=== PATIENT | female | born 1960 | race Caucasian/White ===

== ENCOUNTER 2017-05-04 11:01 | Outpatient (CLI) | payer BC, MEDICARE ==
[2017-05-04 13:44] LABS: Bilirubin Large (Negative); Blood, Urine Negative (Negative); Clarity CLEAR (Clear); Glucose, Urine (Dipstick) Negative (Negative); Leukocyte Negative (Negative); Nitrite Negative (Negative); Protein, Urine (Dipstick) Negative (Neg-Trace); Specific Gravity, Urine 1.016 (1.002-1.036); Urobilinogen 0.2 mg/dL (0.2-1.0); pH, Urine 5.5 (5.0-9.0)
[2017-05-04 13:50] LABS: Bacteria/HPF Rare-Few HPF (None Seen); Hyaline Casts/LPF 4-6 HYALINE CAST LPF (0-3 Hyaline); Pathc Cast-AUWi Flag 0.54 (0-2.49); RBC/HPF 0-3 HPF (0-3); WBC/HPF 0-3 HPF (0-3)
== END 2017-05-04 11:02 | disposition home or self-care (01) ==
LOC: LABBT 11:01
PROVIDERS: ATTEND Orthopaedic Surgery
DX: Z01.812 Encounter for preprocedural laboratory examination (principal); M17.11 Unilateral primary osteoarthritis, right knee
CPT/HCPCS: 81001; 86850; 86900; 86901; 87081; 87086

== ENCOUNTER 2017-05-04 11:15 | Inpatient (IN) | payer BC, MEDICARE ==
[2017-05-12] MEDS ORDERED: CEFAZOLIN/Water 2 GM/20 ML SYRINGE ONE (11:53)
[2017-05-12] MEDS ORDERED: Vancomycin HCl 1.5 GM in Sodium Chloride 0.9% 250 ML 300 ML IVPB SCH (12:15)
[2017-05-12] MEDS ORDERED: Fentanyl 100 MCG/2 ML VIAL ONE ×4 (12:24→17:06)
[2017-05-12] MEDS ORDERED: Midazolam HCl 2 mg/2 ml Vial ONE (12:24)
[2017-05-12 12:37] LABS: INR-International Normal Ratio 1.1; PTT 28.7 SEC (22.9-36.1); Prothrombin Time 14.1 SEC (12.0-14.7)
[2017-05-12] MEDS ORDERED: HYDROcodone/Acetaminophen 10/325 mg Tablet PO PRN ×2 (12:57)
[2017-05-12] MEDS ORDERED: traMADol HCl 50 MG TAB PO PRN ×3 (12:57→18:31)
[2017-05-12] MEDS ORDERED: Promethazine HCl 25 MG/ML VIAL IM PRN ×2 (12:57→17:09)
[2017-05-12] MEDS ORDERED: Ondansetron HCl/PF 4 MG/2 ML Vial IVP PRN ×2 (12:57→17:09)
[2017-05-12] MEDS ORDERED: Fentanyl 100 MCG/2 ML VIAL IV PRN (12:57)
[2017-05-12] MEDS ORDERED: Zolpidem Tartrate 5 MG TAB PO PRN ×3 (12:57→18:31)
[2017-05-12] MEDS ORDERED: Ketorolac Tromethamine 30 MG/ML VIAL IVP PRN (12:57)
[2017-05-12] MEDS ORDERED: SODIUM CHLORIDE IM SCH (13:15)
[2017-05-12] MEDS ORDERED: ADMIXTURE FEE IM SCH (13:15)
[2017-05-12] MEDS ORDERED: BUPIVACAINE IM SCH (13:15)
[2017-05-12] MEDS ORDERED: Bupivacaine PF 0.5% 30 ML VIAL ONE (15:41)
[2017-05-12] MEDS ORDERED: HYDROmorphone 0.5 MG/0.5 ML SYRINGE ONE ×2 (15:59→16:13)
[2017-05-12] MEDS ORDERED: Dexamethasone 20 MG/5 ML VIAL ONE (16:02)
[2017-05-12] MEDS ORDERED: Ondansetron HCl/PF 4 MG/2 ML Vial ONE (16:02)
[2017-05-12] MEDS ORDERED: Propofol 200 MG/20 ML VIAL ONE (16:02)
[2017-05-12] MEDS ORDERED: Lidocaine 1% PF 5 ML VIAL ONE (16:02)
[2017-05-12] MEDS ORDERED: Ketorolac Tromethamine 30 MG/ML VIAL ONE (16:02)
[2017-05-12] MEDS ORDERED: Naloxone HCl 0.4 mg/ml Vial IV PRN (17:09)
[2017-05-12] MEDS ORDERED: Morphine CADD 1 MG/ML CADD IV PRN (17:09)
[2017-05-12] MEDS ORDERED: diphenhydrAMINE 25 MG CAP PO PRN (17:09)
[2017-05-12] MEDS ORDERED: diphenhydrAMINE 50 MG/ML VIAL IM/IV PRN (17:09)
[2017-05-12] MEDS ORDERED: Morphine Sulfate 2 MG/ML SYRINGE SLOW IVP PRN (17:17)
--- NOTE | 2017-05-12 18:20 | RAD ---
RIGHT KNEE: 05/12/17 Two views. HISTORY: Postop knee replacement followup. IMPRESSION: Postop changes are noted. Knee replacement is noted. Prosthetic components appear in adequate positio n and alignment. POS: [facility]
[2017-05-12] MEDS ORDERED: Acetaminophen 325 MG TAB PO PRN (18:31)
[2017-05-12] MEDS ORDERED: Cepastat Lozenges 1 LOZ PO PRN (18:31)
[2017-05-12] MEDS ORDERED: Milk Of Magnesia 30 ML UDCUP PO PRN (18:31)
[2017-05-12] MEDS ORDERED: Morphine 5 MG/ML SYRINGE SLOW IVP PRN (18:31)
[2017-05-12] MEDS ORDERED: SUMAtriptan Succinate 50 MG TAB PO PRN (18:31)
[2017-05-12] MEDS ORDERED: metFORMIN 500 MG TAB PO SCH (18:45)
[2017-05-12] MEDS: CEFAZOLIN/Water 2 GM/20 ML SYRINGE SLOW IVP SCH (19:55)
[2017-05-12] MEDS: traZODone HCl 50 MG TAB PO SCH (21:19)
[2017-05-12] MEDS: Pioglitazone HCl 15 MG TAB PO SCH (21:19)
[2017-05-12] MEDS: Citalopram 20 MG TAB PO SCH (21:20)
[2017-05-12] MEDS: Aspirin 81 mg Enteric Coated Tablet PO SCH (21:20)
[2017-05-12] MEDS: Senokot S 8.6-50 MG TAB PO SCH (21:21)
--- NOTE | 2017-05-12 23:54 | OP ---
DATE OF PROCEDURE: 05/12/2017 PREOPERATIVE DIAGNOSIS: Posttraumatic arthritis, right knee, status post right tibial plateau fractu re. POSTOPERATIVE DIAGNOSES: Posttraumatic arthritis, right knee, status post right tibial plateau fract ure with addition of right knee medial collateral ligament deficiency. PROCEDURES: 1. Right knee hardware removal from proximal tibia. 2. Right total knee arthroplasty. ANESTHESIA: General. SURGEON: Manuel Crane M.D. ASSISTANTS: Steffanie Ngo PA-C and Zan Acuna PA-C. TOURNIQUET TIME: Two hours at 300 mmHg. IMPLANTS: [employer] system was used with a 2.5 posterior stabilized femoral component, a 2.5 tibia l tray with 13 x 30 mm stem, a 15 mm stabilized plus poly insert, and a 35 mm all-poly patellar butto n. COMPLICATIONS: None. DRAINS: None. SPECIMEN: None. OUTCOME: Satisfactory. INDICATIONS: Ms. Beckham is a 57-year-old lady who is status post bicondylar tibial plateau fracture t reated with open reduction and internal fixation. Unfortunately, the severely comminuted fracture we nt on to healing but with post-traumatic arthritis that is still causing the patient pain on a daily basis. After discussion with patient including risks and benefits, we have decided to proceed with r evision to total knee arthroplasty. Informed consent has been obtained and I believe all questions h ave been answered. PROCEDURE IN DETAIL: Patient was brought to the operating room and a timeout performed followed by i nduction of general anesthesia. Next, patient was positioned supine on the OR table and then a steri le prep and drape was performed of the right lower extremity. Next, a small poke hole was made at th e proximal medial aspect of the tibia under C-arm guidance. Blunt dissection was carried down to the medial plate and then 3 screws were removed from this plate through this small stab wound. At the c ompletion of this, it was then decided to proceed with a midline anterior knee incision where it was felt that the remaining hardware could be removed from this one incision. As such, the limb was exsa nguinated with Esmarch bandage, tourniquet inflated to 300 mmHg. An anterior midline incision was ma de followed by dissection exposing the quadriceps mechanism. The medial parapatellar arthrotomy was then performed. A medial release was performed, taking the sleeve of soft tissue off of the anterome dial tibia and extending back towards the posterior aspect of the tibia. During the process of this exposure, the medial plate could be easily visualized and through a second small stab wound medially, the two final screws were removed from the plate and then the plate removed from the wound. Next, u sing the same skin incision, the fascia over the anterior compartment was incised and then the latera l plate exposed and all screws and plate were removed from the lateral side. Next, attention was anabelle elissa back at the knee arthroplasty procedure. The suprapatellar fat pad was excised and then the cox lla inverted and the knee flexed. A step drill was used to obtain a starting point of the distal fem ur and then intramedullary alignment was used to pin a jig for the initial distal femoral cut. Next, the distal femur was sized to a size 2.5. This was followed by the four-in-one cutting block perfor meeta the final cuts of the distal femur and then a box cut to accept the posterior stabilized compone nt. Next, attention was placed to the proximal tibia. The remnant of meniscus was excised and the A CL had been excised previously. She was found to have a completely deficient PCL. As such again usi ng intramedullary alignment, a drill hole was placed in the proximal tibia and then intramedullary al ignment performed with the proximal tibial jig pinned to the front of the tibia. A cut was then perf ormed taking a rather thin layer of bone from anterior but this became thicker as we went farther ariela k on the tibia due to the deformity of the tibia. This cut was then removed and sized to a size 2.5. The trial 2-1/2 tray was then placed on the proximal tibia and pinned in place into the proximal ti deshawn further prepared with the reamer and cruciform punch. A trial reduction was then performed and a size 15 insert resulted in relatively good stability with still some laxity at the medial side of th e knee consistent with chronically disrupted medial collateral ligament. The patella was then resurf aced freehand and sized to a 35 with peg holes drilled into the bone. Next, all trial components wer e removed from the knee and the knee irrigated with normal saline using Pulsavac. Cement was mixed a nd the tibial tray cemented in place first followed by excision of excess cement. This was followed by cementing in place of the femoral component. A trial liner was introduced into the knee and the k nee was brought into compression on while the knee was in full extension getting compression across t he components. The patella was then cemented in place and held in place with a clamp. Once cement h ad fully cured, the trial poly was removed. Some excess cement further removed and then the final po ly insert introduced. The quadriceps mechanism was reapproximated with #2 Vicryl followed by 2-0 Mikel ryl and eda for the skin. A small stab wounds medially were also closed with eda. A Xerofor m gauze, Webril, and Lam wrap dressing were applied to the knee and the knee was placed in a knee imm obilizer. It should be noted the tourniquet was let down at a total time of 2 hours and this was rig ht at the completion of wound closure. There were no complications and patient tolerated the procedu re well.
[2017-05-13] MEDS: CEFAZOLIN/Water 2 GM/20 ML SYRINGE SLOW IVP SCH (03:35)
[2017-05-13 05:32] LABS: Hemoglobin 10.7 g/dL (12.0-16.0); Mean Corpuscular HGB CONC 32.6 g/dL (32.0-36.0); Mean Corpuscular Hemoglobin 30.1 pg (27.0-31.0); Mean Corpuscular Volume 92.3 fl (81.0-99.0); Mean Platelet Volume 7.7 fL (7.4-10.4); Platelet Count 307 thou/uL (130-400); RBC Distribution Width 12.4 % (11.5-14.5); Red Blood Cell (RBC) Count 3.57 mill/uL (4.20-5.40); White Blood Cell (WBC) Count 13.2 thou/uL (4.8-10.8)
[2017-05-13] MEDS: metFORMIN 500 MG TAB PO SCH ×2 (08:20→16:17)
[2017-05-13] MEDS: Allopurinol 300 MG TAB PO SCH (08:21)
[2017-05-13] MEDS: Aspirin 81 mg Enteric Coated Tablet PO SCH ×2 (08:21→20:04)
[2017-05-13] MEDS: Vit A,C & E/Lutein/Minerals Tablet PO SCH (08:22)
[2017-05-13] MEDS: Estradiol 1 MG TAB PO SCH (08:22)
[2017-05-13] MEDS: Lisinopril 20 MG TAB PO SCH (08:22)
[2017-05-13] MEDS: Folic Acid 1 MG TAB PO SCH (08:22)
[2017-05-13] MEDS: Senokot S 8.6-50 MG TAB PO SCH ×2 (08:23→20:04)
[2017-05-13] MEDS ORDERED: (Liraglutide [Victoza 2-Pak] 1.8 MG) SC SCH (09:00)
[2017-05-13] MEDS ORDERED: Leflunomide 10 mg Tablet PO SCH (09:00)
[2017-05-13] MEDS ORDERED: Methotrexate Sodium 2.5 MG TAB PO SCH (09:00)
[2017-05-13] MEDS ORDERED: FLU VACC QS2017-18 36 mo. & older 0.5 ML SYRINGE IM ONE (09:00)
[2017-05-13] MEDS ORDERED: Dextrose 5% in Water 1,000 ML IV PRN (09:33)
[2017-05-13] MEDS ORDERED: Dextrose 50% Abboject 50 ML SYRINGE SLOW IVP PRN (09:33)
[2017-05-13] MEDS ORDERED: HumaLOG 300 UNITS/3 ML VIAL SC PRN ×2 (09:33)
[2017-05-13] MEDS: Fenofibrate Nanocrystallized 145 MG TAB PO SCH (09:34)
--- NOTE | 2017-05-13 15:07 | PDOC.PN ---
- Subjective Encounter Start Date: 05/13/17 Encounter Start Time: 15:05 Subjective: s/p R total knee arthroplasty for post tarumatic arthritis -: no new complains except pain in affected knee -: no F/C.no cough/SOB PCP Dr. Derek Cardona - Objective MAR Reviewed: Yes Vital Signs & Weight: Vital Signs (12 hours) Temp Pulse Resp BP BP Pulse Ox 05/13/17 12:05 97.6 F 96 18 139/75 90 L 05/13/17 08:22 104/68 05/13/17 08:00 98.8 F 90 14 104/68 96 05/13/17 07:40 98.8 F 90 14 05/13/17 03:35 97.8 F 91 18 124/78 92 L Weight Weight 16 lb 4 oz I&O: 05/12/17 05/13/17 05/14/17 06:59 06:59 06:59 Intake Total 250 400 Output Total 375 600 Balance -125 -200 Result Diagrams: 05/13/17 04:32 Additional Labs: Accuchecks 05/13/17 05/13/17 05/12/17 10:42 06:44 23:09 POC Glucose 145 H 129 H 234 H 05/12/17 18:00 POC Glucose 173 H Radiology Reviewed by me: Yes Phys Exam - Physical Examination Constitutional: NAD sitting up in recliner.family at bedside HEENT: PERRLA, moist MMs, sclera anicteric, oral pharynx no lesions Neck: no nodes, no JVD, supple, full ROM Respiratory: no wheezing, no rales, no rhonchi, clear to auscultation bilateral Cardiovascular: RRR, no significant murmur Gastrointestinal: soft, non-tender, no distention, positive bowel sounds Musculoskeletal: no edema, pulses present R knee wrapped Neurological: non-focal, normal sensation, moves all 4 limbs Psychiatric: normal affect, A&O x 3 Skin: no rash Dx/Plan (1) S/P total knee arthroplasty Code(s): Z96.659 - PRESENCE OF UNSPECIFIED ARTIFICIAL KNEE JOINT Status: Acute Qualifiers: Laterality: right Qualified Code(s): Z96.651 - Presence of right artificial knee joint (2) FH: breast cancer in first degree relative Code(s): Z80.3 - FAMILY HISTORY OF MALIGNANT NEOPLASM OF BREAST Status: Chronic Comment: pt advised again to stop premarin (3) DM2 (diabetes mellitus, type 2) Status: Chronic Qualifiers: Diabetes mellitus complication status: with hyperglycemia (4) Depression Code(s): F32.9 - MAJOR DEPRESSIVE DISORDER, SINGLE EPISODE, UNSPECIFIED Status : Chronic (5) Gout Code(s): M10.9 - GOUT, UNSPECIFIED Status: Chronic (6) HTN (hypertension) Code(s): I10 - ESSENTIAL (PRIMARY) HYPERTENSION Status: Chronic Qualifiers: Hypertension type: essential hypertension Qualified Code(s): I10 - Essential (primary) hypertension (7) Migraine Code(s): G43.909 - MIGRAINE, UNSP, NOT INTRACTABLE, WITHOUT STATUS MIGRAINOSUS Status: Chronic (8) PARMINDER (obstructive sleep apnea) Code(s): G47.33 - OBSTRUCTIVE SLEEP APNEA (ADULT) (PEDIATRIC) Status: Chronic (9) Psoriatic arthritis Code(s): L40.50 - ARTHROPATHIC PSORIASIS, UNSPECIFIED Status: Chronic - Plan plan discussed w/ family, PT/OT, hospital social worker, respiratory therapy, incentive spirometry, out of bed/ambulate, DVT proph w/SCDs Home meds as started by Primary team.HD stable.monitor BP -: ASA BID for DVT prophylaxis.add GI prophyalxis -: Add ISS w accuchecks.pt will have her Trulicity brought from home * . Review of Systems - Review of Systems Constitutional: negative: fever, chills, sweats, weakness, malaise, other ENT: negative: Ear Pain, Ear Discharge, Nose Pain, Nose Discharge, Nose Congestion, Mouth Pain, Mouth Swelling, Throat Pain, Throat Swelling, Other Respiratory: negative: Cough, Dry, Shortness of Breath, Hemoptysis, SOB with Excertion, Pleuritic Pain, Sputum, Wheezing Cardiovascular: negative: chest pain, palpitations, orthopnea, paroxysmal nocturnal dyspnea, edema, light headedness, other Gastrointestinal: negative: Nausea, Vomiting, Abdominal Pain, Diarrhea, Constipation, Melena, Hematochezia, Other Genitourinary: negative: Dysuria, Frequency, Incontinence, Hematuria, Retention , Other Musculoskeletal: negative: Neck Pain, Shoulder Pain, Arm Pain, Back Pain, Hand Pain, Leg Pain, Foot Pain, Other Skin: negative: Rash, Lesions, Rex, Bruising, Other Neurological: negative: Weakness, Numbness, Incoordination, Change in Speech, Confusion, Seizures, Other - Medications/Allergies Allergies/Adverse Reactions: Allergies Allergy/AdvReac Type Severity Reaction Status Date / Time Sulfa (Sulfonamide Allergy Verified 05/04/17 11:38 Antibiotics) sulfadiazine Allergy Verified 05/04/17 11:38 Medications: Current Medications Acetaminophen (Tylenol) 650 mg PO Q4H PRN PRN Reason: PERRY/T > 101F/Mild Pain (1-3) Allopurinol (Zyloprim) 300 mg PO QAM [facility] Last Admin: 05/13/17 08:21 Dose: 300 mg Aspirin (Ecotrin) 81 mg PO BID [facility] Last Admin: 05/13/17 08:21 Dose: 81 mg Citalopram Hydrobromide (Celexa) 40 mg PO HS [facility] Last Admin: 05/12/17 21:20 Dose: 40 mg Dextrose/Water (Dextrose 50%) 25 gm SLOW IVP PRN PRN PRN Reason: Hypoglycemia Diphenhydramine HCl (Benadryl) 25 mg IM/IV Q3H PRN PRN Reason: Itching Diphenhydramine HCl (Benadryl) 25 mg PO Q3H PRN PRN Reason: Itching Estradiol (Estrace) 0.5 mg PO DAILY [facility] Last Admin: 05/13/17 08:22 Dose: 0.5 mg Fenofibrate (Tricor) 145 mg PO DAILY [facility] Last Admin: 05/13/17 09:34 Dose: 145 mg Folic Acid (Folvite) 1 mg PO DAILY [facility] Last Admin: 05/13/17 08:22 Dose: 1 mg Glucagon (Glucagon) 1 mg IM PRN PRN PRN Reason: Hypoglycemia Dextrose/Water (D5w) 1,000 mls @ 0 mls/hr IV .Q0M PRN; As Directed PRN Reason: Hypoglycemia Insulin Human Lispro (Humalog) 0 units SC .MODERATE SLIDING SC PRN PRN Reason: Moderate Correctional Scale Insulin Human Lispro (Humalog) 0 units SC .BEDTIME SLIDING SC PRN PRN Reason: Bedtime Correctional Scale Ketorolac Tromethamine (Toradol) 15 mg IVP Q6H PRN PRN Reason: Moderate Pain (4-6) Stop: 05/15/17 12:58 Lisinopril (Zestril) 40 mg PO QAM [facility] Last Admin: 05/13/17 08:22 Dose: 40 mg Magnesium Hydroxide (Milk Of Magnesium) 30 ml PO DAILYPRN PRN PRN Reason: Constipation Metformin HCl (Glucophage) 1,000 mg PO BID-[facility] Last Admin: 05/13/17 08:20 Dose: 1,000 mg Morphine Sulfate (Morphine Cadd) 0 mg IV INF PRN PRN Reason: Pain Multivitamins/Minerals (Ocuvite With Lutein) 1 tab PO DAILY [facility] Last Admin: 05/13/17 08:22 Dose: 1 tab Naloxone HCl (Narcan) 0.2 mg IV Q5MIN PRN PRN Reason: RR <8 or pt obtun/unarousable (Liraglutide [ Victoza 2-Daniel] 1.8 Mg) 1.8 mg SC DAILY [facility] Ondansetron HCl (Zofran) 4 mg IVP Q6H PRN PRN Reason: Nausea/Vomiting Ondansetron HCl (Zofran) 4 mg IVP Q6H PRN PRN Reason: Nausea/Vomiting Pioglitazone HCl (Actos) 15 mg PO [facility] Last Admin: 05/12/17 21:19 Dose: 15 mg Promethazine HCl (Phenergan) 12.5 mg IM Q4H PRN PRN Reason: Nausea Promethazine HCl (Phenergan) 12.5 mg IM Q4H PRN PRN Reason: Nausea/Vomiting Senna/Docusate Sodium (Senokot S) 2 tab PO BID [facility] Last Admin: 05/13/17 08:23 Dose: 2 tab Sodium Chloride (Flush - Normal Saline) 10 ml IVF PRN PRN PRN Reason: Saline Flush Sumatriptan Succinate (Imitrex) 100 mg PO DAILYPRN PRN PRN Reason: MIGRAINES Throat Lozenges (Cepastat Lozenges) 1 yessy PO Q2H PRN PRN Reason: Sore Throat Trazodone HCl (Desyrel) 100 mg PO [facility] Last Admin: 05/12/17 21:19 Dose: 100 mg Zolpidem Tartrate (Ambien) 5 mg PO HSPRN PRN PRN Reason: Insomnia
[2017-05-13] MEDS: Citalopram 20 MG TAB PO SCH (20:03)
[2017-05-13] MEDS: traZODone HCl 50 MG TAB PO SCH (20:04)
[2017-05-13] MEDS: Famotidine 20 MG TAB PO SCH (20:04)
[2017-05-13] MEDS: Pioglitazone HCl 15 MG TAB PO SCH (20:04)
[2017-05-14 04:37] LABS: Mean Corpuscular HGB CONC 32.5 g/dL (32.0-36.0); Mean Corpuscular Hemoglobin 30.1 pg (27.0-31.0); Mean Corpuscular Volume 92.7 fl (81.0-99.0); Mean Platelet Volume 7.7 fL (7.4-10.4); Platelet Count 240 thou/uL (130-400); RBC Distribution Width 12.7 % (11.5-14.5); Red Blood Cell (RBC) Count 3.32 mill/uL (4.20-5.40)
[2017-05-14 04:51] LABS: Anion Gap 11 mmol/L (10-20); BUN (Urea Nitrogen) 19 mg/dL (9.8-20.1); Calc. Creatinine Clearance 10 mL/min (70-130); Calcium 8.3 mg/dL (7.8-10.44); Carbon Dioxide 27 mmol/L (22-29); Chloride 106 mmol/L (98-107); Estimated GFR-MDRD 80; Glucose 132 mg/dL (70-105); Potassium 4.2 mmol/L (3.5-5.1); Sodium 140 mmol/L (136-145)
[2017-05-14] MEDS: Aspirin 81 mg Enteric Coated Tablet PO SCH (08:38)
[2017-05-14] MEDS: Folic Acid 1 MG TAB PO SCH (08:38)
[2017-05-14] MEDS: Allopurinol 300 MG TAB PO SCH (08:38)
[2017-05-14] MEDS: Senokot S 8.6-50 MG TAB PO SCH (08:38)
[2017-05-14] MEDS: Estradiol 1 MG TAB PO SCH (08:38)
[2017-05-14] MEDS: Vit A,C & E/Lutein/Minerals Tablet PO SCH (08:38)
[2017-05-14] MEDS: metFORMIN 500 MG TAB PO SCH (08:38)
[2017-05-14] MEDS: Lisinopril 20 MG TAB PO SCH (08:38)
[2017-05-14] MEDS: Fenofibrate Nanocrystallized 145 MG TAB PO SCH (08:38)
[2017-05-14] MEDS: Famotidine 20 MG TAB PO SCH (08:38)
--- NOTE | 2017-05-14 09:53 | RAD ---
PORTABLE CHEST ONE VIEW: Date: 05-14-17 Time: 9:39 a.m. History: Tachycardia. FINDINGS: Comparison is made with exam dated 04-19-16. The heart size is normal. The lungs are expanded without focal areas of consolidation or pneumothorax , ranulfo pulmonary edema or pleural effusions. IMPRESSION: No radiographic evidence of acute cardiopulmonary process. POS: [facility]
[2017-05-14] MEDS ORDERED: HYDROcodone/Acetaminophen 10/325 mg Tablet PO PRN ×2 (10:35)
[2017-05-14 12:27] VITALS: BP 148/81; TEMP 98.3
--- NOTE | 2017-05-15 13:29 | DIS ---
DATE OF ADMISSION: 05/12/2017 DATE OF DISCHARGE: 05/14/2017 PREOPERATIVE DIAGNOSIS: Posttraumatic arthritis right knee, status post right tibial plateau fract ure. POSTOPERATIVE DIAGNOSIS: Posttraumatic arthritis, right knee, status post right tibial plateau fract ure with addition of right knee medial collateral ligament deficiency. PROCEDURE: 1. The patient underwent a right knee hardware removal from proximal tibia. 2. Right total knee arthroplasty. HOSPITAL COURSE: Hospital stay was unremarkable. The patient worked with physical therapy, occupati onal therapy, and progressed quite well. By postoperative day 2, she was ready to be discharged to [facility]. DISCHARGE CONDITION: Good/stable. DISPOSITION: Rehab. FOLLOWUP: Follow up would be in 10-14 days, sooner if there are problems or concerns. DISCHARGE MEDICATIONS: Given with usage instructions.
== END 2017-05-14 13:14 | disposition swing bed (61) | DRG 468 ==
LOC: SJJU 05-12 11:06 → SURG A 05-12 18:26
PROVIDERS: ADMIT Orthopaedic Surgery; ATTEND Orthopaedic Surgery
PROC: 0SPC0JZ Removal of Synthetic Substitute from Right Knee Joint, Open Approach (ICD-10-PCS; principal; 2017-05-12)
PROC: 0SRC0J9 Replacement of Right Knee Joint with Synthetic Substitute, Cemented, Open Approach (ICD-10-PCS; 2017-05-12)
DX: M17.31 Unilateral post-traumatic osteoarthritis, right knee (principal); E11.65 Type 2 diabetes mellitus with hyperglycemia; I10 Essential (primary) hypertension; Z87.81 Personal history of (healed) traumatic fracture; S82.141S Displaced bicondylar fracture of right tibia, sequela; Z96.651 Presence of right artificial knee joint; Z80.3 Family history of malignant neoplasm of breast; F32.9 Major depressive disorder, single episode, unspecified; M10.9 Gout, unspecified; G43.909 Migraine, unspecified, not intractable, without status migrainosus; G47.33 Obstructive sleep apnea (adult) (pediatric); L40.50 Arthropathic psoriasis, unspecified
CPT/HCPCS: 36415; 36416; 71045; 76000; 80048; 85027; 85610; 85730; C1713; C1776; G8978-GP-CM; G8979-GP-CK; G8987-GO-CK; G8988-GO-CI; J1100; J1170; J1885; J2001; J2250; J2274; J2405; J2704; J3010; J3370; J3490; J7050; J8610; S0020

== ENCOUNTER 2019-08-09 04:17 | Inpatient (IN) | payer OTHER, MEDICARE ==
[2019-08-09 07:21] VITALS: BMI 53.6
[2019-08-09] MEDS ORDERED: Enoxaparin Sodium 80 MG/0.8 ML SYRINGE SC SCH (07:59)
[2019-08-09] MEDS ORDERED: SUMATRIPTAN SUCCINATE PO PRN (08:00)
[2019-08-09] MEDS ORDERED: Senokot S 8.6-50 MG TAB PO PRN (08:02)
[2019-08-09] MEDS ORDERED: Acetaminophen 325 MG TAB PO PRN (08:02)
[2019-08-09] MEDS ORDERED: Dextrose 50% Abboject 50 ML SYRINGE SLOW IVP PRN (08:02)
[2019-08-09] MEDS ORDERED: Dextrose 5% in Water 1,000 ML IV PRN (08:02)
[2019-08-09] MEDS ORDERED: HumaLOG 300 UNITS/3 ML VIAL SC PRN ×2 (08:02→21:20)
[2019-08-09 08:15] LABS: #Basophils 0.1 thou/uL (0.0-0.2); #Eosinphils 0.2 thou/uL (0.0-0.7); #Lymphocytes 1.5 thou/uL (1.20-3.40); #Monocytes 0.2 thou/uL (0.11-0.59); %Basophils 0.9 % (0.0-1.0); %Eosinophils 3.3 % (0.0-10.0); %Monocytes 2.8 % (0.0-10.0); %Neutrophils 67.9 % (42.0-75.0); Hemoglobin 10.9 g/dL (12.0-16.0); Mean Corpuscular Hemoglobin 30.9 pg (27.0-31.0); Mean Corpuscular Volume 96.4 fL (78.0-98.0); Mean Platelet Volume 7.3 fL (7.4-10.4); Platelet Count 271 thou/uL (130-400); RBC Distribution Width 15.7 % (11.5-14.5); Red Blood Cell (RBC) Count 3.54 mill/uL (4.20-5.40); White Blood Cell (WBC) Count 5.9 thou/uL (4.8-10.8)
[2019-08-09] MEDS ORDERED: SUMAtriptan Succinate 50 MG TAB PO PRN (08:15)
[2019-08-09 08:36] LABS: Anion Gap 14 mmol/L (10-20); BUN (Urea Nitrogen) 18 mg/dL (9.8-20.1); Calc. Creatinine Clearance 159 mL/min (70-130); Calcium 9.5 mg/dL (7.8-10.44); Carbon Dioxide 25 mmol/L (22-29); Chloride 106 mmol/L (98-107); Estimated GFR-MDRD 73; Glucose 135 mg/dL (70-105); Potassium 4.7 mmol/L (3.5-5.1); Sodium 140 mmol/L (136-145)
[2019-08-09 08:42] LABS: Troponin I Less than 0.010 ng/mL (< 0.028)
[2019-08-09] MEDS ORDERED: Non-Formulary Item 1 EACH (Fenofibrate [Fenofibrate] 1 TAB) PO SCH (09:00)
[2019-08-09] MEDS ORDERED: Folic Acid 1 MG TAB PO SCH (09:00)
[2019-08-09] MEDS ORDERED: Apixaban 5 MG TAB PO SCH (09:00)
[2019-08-09] MEDS ORDERED: Non-Formulary Item 1 EACH (Lisinopril [Lisinopril] 40 MG) PO SCH (09:00)
--- NOTE | 2019-08-09 09:42 | ULT ---
Venous duplex sonogram bilateral lower extremity HISTORY: Right leg pain and edema. Positive DVT. FINDINGS: Each common femoral vein and greater saphenous junction were evaluated with along with each femoral, deep femoral, popliteal, and posterior tibial vein. Echogenic material within the right popliteal vein is present with lack of compressibility and dimini shed flow. Good color and spectral Doppler flow elsewhere without other areas of DVT evident. IMPRESSION : Partially occlusive DVT within the right popliteal vein.
[2019-08-09] MEDS: Aspirin 81 mg Enteric Coated Tablet PO SCH ×2 (10:04→21:08)
[2019-08-09] MEDS: Lisinopril 20 MG TAB PO SCH (10:04)
[2019-08-09] MEDS: Folic Acid 1 MG TAB PO SCH (10:04)
[2019-08-09] MEDS: Allopurinol 300 MG TAB PO SCH (10:04)
[2019-08-09] MEDS: Enoxaparin Sodium 100 MG/ML SYRINGE SC SCH ×2 (10:05→21:08)
[2019-08-09] MEDS: Enoxaparin Sodium 30 MG/0.3 ML SYRINGE SC SCH ×2 (10:05→21:08)
[2019-08-09] MEDS: Leflunomide 10 mg Tablet PO SCH (10:05)
[2019-08-09] MEDS: Fenofibrate Nanocrystallized 145 MG TAB PO SCH (10:05)
[2019-08-09] MEDS ORDERED: traZODone HCl 50 MG TAB PO SCH (21:00)
[2019-08-09] MEDS ORDERED: traZODone HCl 150 MG TAB PO SCH (21:00)
[2019-08-09] MEDS ORDERED: Pioglitazone HCl 15 MG TAB PO SCH (21:00)
[2019-08-09] MEDS ORDERED: Citalopram 20 MG TAB PO SCH (21:45)
[2019-08-10 04:29] LABS: #Basophils 0.1 thou/uL (0.0-0.2); #Eosinphils 0.3 thou/uL (0.0-0.7); #Lymphocytes 1.6 thou/uL (1.20-3.40); #Monocytes 0.2 thou/uL (0.11-0.59); #Neutrophils 4.6 thou/uL (1.40-6.50); %Eosinophils 5.1 % (0.0-10.0); %Lymphocytes 23.1 % (21.0-51.0); %Monocytes 2.7 % (0.0-10.0); %Neutrophils 68.2 % (42.0-75.0); Hemoglobin 11.4 g/dL (12.0-16.0); Mean Corpuscular HGB CONC 31.2 g/dL (32.0-36.0); Mean Corpuscular Hemoglobin 30.3 pg (27.0-31.0); Mean Corpuscular Volume 97.3 fL (78.0-98.0); Mean Platelet Volume 7.7 fL (7.4-10.4); Platelet Count 312 thou/uL (130-400); RBC Distribution Width 15.7 % (11.5-14.5); Red Blood Cell (RBC) Count 3.77 mill/uL (4.20-5.40); White Blood Cell (WBC) Count 6.8 thou/uL (4.8-10.8)
[2019-08-10 05:11] LABS: Anion Gap 16 mmol/L (10-20); BUN (Urea Nitrogen) 16 mg/dL (9.8-20.1); Calc. Creatinine Clearance 159 mL/min (70-130); Calcium 9.3 mg/dL (7.8-10.44); Carbon Dioxide 22 mmol/L (22-29); Chloride 105 mmol/L (98-107); Estimated GFR-MDRD 73; Glucose 133 mg/dL (70-105); Potassium 3.7 mmol/L (3.5-5.1); Sodium 139 mmol/L (136-145)
--- NOTE | 2019-08-10 08:41 | HP ---
The patient was seen yesterday. CHIEF COMPLAINT: Chest pain. HISTORY OF PRESENT ILLNESS: The patient is a very pleasant 59-year-old female, who initially presented to the hospital with complaints of right lower back pain and then radiating to her chest area and shoulder area. The patient stated that her pain was dull in nature. She denied any shortness of breath, nausea, vomiting, or diarrhea. However, she feels that for the past few days she has been having some shortness of breath. The patient states that about 3 months ago, she had a right foot surgery and then she had a boot on. Once the boot was removed, she actually fell, which was a mechanical fall and then shattered her bone on the right foot. The surgeon tried to fix it; however, it was unsuccessful. The patient states that she was nonweightbearing on the right foot and has been using a wheelchair to move around and just recently has been starting putting some weight on her right foot. The patient had a CTA, which indicated a PE and was sent here for further evaluation. PAST MEDICAL HISTORY: The patient has a history of rheumatoid arthritis. She has a history of sleep apnea, arthritis, diabetes. PAST SURGICAL HISTORY: She has had a cholecystectomy, hysterectomy, and right foot surgery. SOCIAL HISTORY: Denies any alcohol use, drug use, or smoking history. She is a full code. Lives with her . ALLERGIES: SULFA AND SULFASALAZINE. MEDICATIONS: She is on, 1. Metformin 1000 mg one twice a day. 2. Actos 50 mg daily. 3. Allopurinol 300 mg daily. 4. Citalopram 40 mg daily. 5. Gabapentin 300 mg t.i.d. 6. Arava 10 mg daily. 7. Methotrexate 2.5 once a week. 8. Lisinopril 40 mg daily. PHYSICAL EXAMINATION: VITAL SIGNS: Temperature of 98.8, oxygen saturation 96% on room air, respirations are 16, pulse 100, blood pressure 165/80. GENERAL: She is awake, alert, and oriented x3. Does not appear in distress. CARDIOVASCULAR: S1 and S2 present. No murmurs, rubs, or gallops. ABDOMEN: Obese. Bowel sounds are present x2. LUNGS: Clear to auscultation. No rhonchi or wheezes noted. EXTREMITIES: Lower extremities, pedal pulses are present x2. No erythema noted. NEUROLOGIC: There are no focal deficits noted. SKIN: No cuts, lesions, or bruises noted. LABORATORY RESULTS: As of the following; WBCs of 6.8, hemoglobin of 10.9, hematocrit of 34.2, platelets of 271. Chemistry; sodium 139, potassium 3.7, BUN of 16, creatinine 0.80. Her troponin x1 was normal. As I mentioned, she did have a CTA and the report indicated that she had significant right-sided pulmonary embolism. ASSESSMENT AND PLAN: The patient is a very pleasant 59-year-old female, who presents to the hospital with complaints of chest pain and right back pain. 1. Shortness of breath, most likely secondary to her pulmonary embolism. She had significant pulmonary embolism, which most likely is provoked due to her immobility from her surgery. I will also get a lower extremity Doppler and start her on Lovenox for right now. We will get an echocardiogram. Troponin x1 is negative. Hopefully, we will get her out tomorrow if she continues to improve. 2. Obesity. I talked about diet, exercise, and weight loss. 3. Diabetes. We will continue her home medications. 4. Rheumatoid arthritis. I will continue her home medications. She is currently not on Xeljanz anymore. 5. Deep venous thrombosis prophylaxis. Again, she is already on the subcutaneous Lovenox. Job ID: [id number]
[2019-08-10] MEDS ORDERED: Ketoconazole 2% Cream 15 gm Tube TOP SCH (09:00)
[2019-08-10] MEDS: Lisinopril 20 MG TAB PO SCH (09:02)
[2019-08-10] MEDS: Leflunomide 10 mg Tablet PO SCH (09:03)
[2019-08-10] MEDS: Fenofibrate Nanocrystallized 145 MG TAB PO SCH (09:03)
[2019-08-10] MEDS: Allopurinol 300 MG TAB PO SCH (09:03)
[2019-08-10] MEDS: Enoxaparin Sodium 30 MG/0.3 ML SYRINGE SC SCH (09:04)
[2019-08-10] MEDS: Folic Acid 1 MG TAB PO SCH (09:04)
[2019-08-10] MEDS: Enoxaparin Sodium 100 MG/ML SYRINGE SC SCH (09:05)
[2019-08-10] MEDS: Aspirin 81 mg Enteric Coated Tablet PO SCH (09:55)
[2019-08-10 10:03] LABS: Hemoglobin 11.8 g/dL (12.0-16.0); Platelet Count 305 thou/uL (130-400)
[2019-08-10] MEDS ORDERED: Cephalexin 250 MG CAP PO SCH (12:00)
[2019-08-10 12:52] VITALS: BP 136/90; TEMP 98.2
[2019-08-10] MEDS ORDERED: Nystatin Powder 15 GM BOT TOP PRN (13:08)
[2019-08-10] MEDS ORDERED: Citalopram 20 MG TAB PO SCH (21:00)
--- NOTE | 2019-08-11 04:26 | DIS ---
DATE OF ADMISSION: 08/09/2019 DATE OF DISCHARGE: 08/10/2019 DISCHARGE DIAGNOSES: 1. Back pain and chest pain, resolved. 2. Acute deep venous thrombosis and pulmonary embolism provoked from immobilization and recent surgeries. 3. Obesity. 4. Diabetes. 5. Depression. HOSPITAL COURSE: The patient is a 59-year-old female, who initially presented to the hospital with complaints of back pain and right-sided chest pain, shoulder pain. She underwent a CTA which was positive for PE. I also did a venous Doppler, which was positive for right lower extremity DVT, which had a partial occlusion of the right popliteal vein. The patient initially was put on Lovenox, which was transitioned to Eliquis. I have given an instruction on Eliquis, that she is supposed to take it 10 mg twice a day for about 7 days and then 5 mg twice a day until she sees her PCP. This is most likely provoked since she has not been very mobile. I have continued the remaining of her medications. During hospital stay, she was noted to have some fungal changes and skin changes to her right under the breast area. I have prescribed her some cream and also prophylactic antibiotics. Also, Wound Care saw her and recommended to keep her area dry. She will follow up with her primary care doctor. She may even require Dermatology for this. The patient also had an echocardiogram, echo indicated EF of 55% to 60%, mild mitral regurgitation, mild tricuspid regurgitation. Her labs were stable. Her troponin that was done was negative. The patient will be discharged home. She will follow up with her primary in a week. MEDICATIONS: Her home medications will be as of the following, 1. Aspirin 81 mg daily. 2. Multivitamin one p.o. daily. 3. Folic acid one daily. 4. Metformin 1000 b.i.d. 5. Methotrexate pill every 7 days. 6. Leflunomide 10 mg daily. 7. Fenofibrate one p.o. q.a.m. 8. Allopurinol 300 mg daily. 9. Lisinopril 40 mg daily. 10. Sumatriptan 100 mg as needed. 11. Nystatin 1 g topical b.i.d. p.r.n. 12. Keflex 250 mg q.6 hours p.r.n. 13. Eliquis as I mentioned 10 mg twice a day for 7 days and then 5 mg twice a day. 14. Actos 15 mg p.o. at bedtime. 15. Ketoconazole. PHYSICAL EXAMINATION: VITAL SIGNS: Temperature of 98.2, pulse 90, respiratory rate 14, saturation 95% on room air, blood pressure 136/90. GENERAL: She is awake, alert, and oriented x3. Does not appear in distress. CV: S1, S2 present. No murmurs, rubs, or gallops. ABDOMEN: Soft and nontender. Bowel sounds are present x2. SKIN: She does have significant amount of erythema noted to her right breast and her right groin area. Again, she will be discharged home. She will follow up with her primary. Job ID: [id number]
[2019-08-11] MEDS ORDERED: Aspirin 81 mg Enteric Coated Tablet PO SCH (09:00)
== END 2019-08-10 17:11 | disposition home or self-care (01) | DRG 300 ==
LOC: ERS 04:17 → 2NO 05:43
PROVIDERS: ADMIT Internal Medicine; ATTEND Internal Medicine
DX: T81.718A Complication of other artery following a procedure, not elsewhere classified, initial encounter (principal); I82.431 Acute embolism and thrombosis of right popliteal vein; Z68.43 Body mass index [BMI] 50.0-59.9, adult; I26.99 Other pulmonary embolism without acute cor pulmonale; Y83.8 Other surgical procedures as the cause of abnormal reaction of the patient, or of later complication, without mention of misadventure at the time of the procedure; E66.9 Obesity, unspecified; E11.9 Type 2 diabetes mellitus without complications; F32.9 Major depressive disorder, single episode, unspecified; I10 Essential (primary) hypertension; G47.33 Obstructive sleep apnea (adult) (pediatric); M19.90 Unspecified osteoarthritis, unspecified site; Z96.651 Presence of right artificial knee joint; Z90.49 Acquired absence of other specified parts of digestive tract; Z90.710 Acquired absence of both cervix and uterus
CPT/HCPCS: 36415; 36416; 80048; 84484; 85025; 93005; 93010; 93306; 93970; 94760; J1650

== ENCOUNTER → 2021-01-22 | Day surgery (SDC) | payer MEDICARE, OTHER | LOC: CT 13:41 | PROVIDERS: ATTEND Orthopaedic Surgery | PROC: 0S9C3ZZ Drainage of Right Knee Joint, Percutaneous Approach (ICD-10-PCS; principal; 2021-01-22) | DX: T84.84XA Pain due to internal orthopedic prosthetic devices, implants and grafts, initial encounter (principal); Z88.1 Allergy status to other antibiotic agents; Z88.2 Allergy status to sulfonamides; Z96.651 Presence of right artificial knee joint; Y79.2 Prosthetic and other implants, materials and accessory orthopedic devices associated with adverse incidents | CPT/HCPCS: 20610; 36415; 77002; 82945; 84157; 85025; 85060; 85652; 86140; 87070; 87205; 89051 ==

== ENCOUNTER 2021-01-23 13:11 | Inpatient (IN) | payer MEDICARE ==
[~2021-01-23 13:11] MED LIST: Heparin 1,000 UNITS/ML VIAL ONE
[2021-01-23 13:55] LABS: #Basophils 0.1 thou/uL (0.0-0.2); #Eosinphils 0.3 thou/uL (0.0-0.7); #Lymphocytes 1.4 thou/uL (1.20-3.40); #Monocytes 0.7 thou/uL (0.11-0.59); #Neutrophils 8.2 thou/uL (1.40-6.50); %Basophils 0.5 % (0.0-1.0); %Eosinophils 3.2 % (0.0-10.0); %Lymphocytes 12.9 % (21.0-51.0); %Monocytes 6.9 % (0.0-10.0); %Neutrophils 76.5 % (42.0-75.0); Hemoglobin 11.2 g/dL (12.0-16.0); Mean Corpuscular HGB CONC 31.4 g/dL (32.0-36.0); Mean Corpuscular Hemoglobin 26.6 pg (27.0-31.0); Mean Corpuscular Volume 84.6 fL (78.0-98.0); Mean Platelet Volume 7.3 fL (7.4-10.4); Platelet Count 462 thou/uL (130-400); RBC Distribution Width 15.2 % (11.5-14.5); Red Blood Cell (RBC) Count 4.22 mill/uL (4.20-5.40); White Blood Cell (WBC) Count 10.7 thou/uL (4.8-10.8)
[2021-01-23 14:07] LABS: INR-International Normal Ratio 1.3; PTT 38.2 sec (22.9-36.1); Prothrombin Time 16.1 sec (12.0-14.7)
[2021-01-23 14:26] LABS: ALT (SGPT) 14 U/L (8-55); AST (SGOT) 23 U/L (5-34); Albumin 3.3 g/dL (3.5-5.0); Alkaline Phosphatase 58 U/L (40-110); Anion Gap 16 mmol/L (10-20); BUN (Urea Nitrogen) 12 mg/dL (9.8-20.1); Bilirubin, Total 0.5 mg/dL (0.2-1.2); Calc. Creatinine Clearance 0 mL/min (70-130); Carbon Dioxide 26 mmol/L (22-29); Chloride 102 mmol/L (98-107); Globulin 3.2 g/dL (2.4-3.5); Glucose 170 mg/dL (70-105); Potassium 3.9 mmol/L (3.5-5.1); Protein, Total 6.5 g/dL (6.0-8.3); Sodium 140 mmol/L (136-145)
[2021-01-23 14:29] VITALS: BMI 49.4
[2021-01-23] MEDS ORDERED: FLU VACC QS2021-22(6MOS UP)/PF 60 MCG/0.5 ML SYRINGE IM ONE (14:45)
[2021-01-23] MEDS ORDERED: traMADol HCl 50 MG TAB PO PRN (16:23)
[2021-01-23 16:41] LABS: SARS-CoV-2 NAA Rapid Test Not Detected (NotDetected)
[2021-01-23] MEDS: metFORMIN 500 MG TAB PO SCH (18:10)
[2021-01-23] MEDS ORDERED: traZODone HCl 50 MG TAB PO SCH (21:00)
[2021-01-23] MEDS: busPIRone HCl 5 MG TAB PO SCH (21:36)
[2021-01-23] MEDS: Gabapentin 300 MG CAP PO SCH (21:37)
[2021-01-23] MEDS: Ciprofloxacin 500 MG TAB PO SCH (21:37)
[2021-01-23 21:56] LABS: Bilirubin Negative (Negative); Blood, Urine Negative (Negative); Clarity Clear (Clear); Glucose, Urine (Dipstick) Normal (Negative); Ketone, Urine Negative (Negative); Leukocyte Negative Leu/uL (Negative); Mucous/LPF Rare LPF (<2+); Nitrite Negative (Negative); Protein, Urine (Dipstick) 50 mg/dL (Neg-Trace); RBC/HPF 0-3 HPF (0-3); Squamous Epithelial 0-3 HPF (0-3); Urobilinogen Normal mg/dL (Less than 2); WBC/HPF 0-3 HPF (0-3); pH, Urine 5.5 (5.0-9.0)
[2021-01-23] MEDS ORDERED: Rifampin 300 MG CAP PO SCH (22:00)
[2021-01-23 22:10] LABS: Bacteria/HPF Rare-Few HPF (None Seen)
[2021-01-23 22:12] LABS: Urine Culture Reflex No No
[2021-01-24] MEDS: Ciprofloxacin 500 MG TAB PO SCH (05:55)
[2021-01-24] MEDS ORDERED: Fentanyl 100 MCG/2 ML VIAL ONE ×3 (08:01→09:28)
[2021-01-24] MEDS ORDERED: Midazolam HCl 2 mg/2 ml Vial ONE (08:01)
[2021-01-24] MEDS ORDERED: Bupivacaine PF 0.5% 30 ML VIAL ONE (08:26)
[2021-01-24] MEDS ORDERED: Tobramycin Sulfate 1.2 GM VIAL ONE (08:26)
[2021-01-24] MEDS ORDERED: EPINEPHrine 1 MG/ML AMP ONE (08:26)
[2021-01-24] MEDS ORDERED: Tobramycin 80 MG/2 ML VIAL ONE ×2 (08:28)
[2021-01-24] MEDS ORDERED: Bupivacaine HCl 0.5%/Epinephrine 1:200,000/PF 30 ml Vial ONE (08:30)
[2021-01-24] MEDS ORDERED: Ropivacaine 2% HCl/PF (20 MG/10 ML VIAL) ONE (08:30)
[2021-01-24] MEDS ORDERED: CEFAZOLIN 2 GM in Sodium Chloride 0.9% 100 ML IVPB SCH (08:30)
[2021-01-24] MEDS ORDERED: Acetaminophen 325 MG TAB PO PRN (08:31)
[2021-01-24] MEDS ORDERED: diphenhydrAMINE 25 MG CAP PO PRN (08:31)
[2021-01-24] MEDS ORDERED: HYDROcodone/Acetaminophen 10/325 mg Tablet PO PRN ×3 (08:31→11:15)
[2021-01-24] MEDS ORDERED: Ondansetron PF 4 MG/2 ML Vial IVP PRN (08:31)
[2021-01-24] MEDS ORDERED: Fentanyl 100 MCG/2 ML VIAL SLOW IVP PRN ×2 (08:31→11:08)
[2021-01-24] MEDS ORDERED: Promethazine HCl 25 MG/ML VIAL IM PRN ×3 (08:31→11:15)
[2021-01-24] MEDS ORDERED: Zolpidem Tartrate 5 MG TAB PO PRN ×2 (08:31→11:15)
[2021-01-24] MEDS ORDERED: ceFAZolin 2 GM/DEX 5% 100 ML BAG ONE (08:34)
[2021-01-24] MEDS ORDERED: PROPOFOL 200 MG/20 ML VIAL ONE (08:54)
[2021-01-24] MEDS ORDERED: Glycopyrrolate 0.2 MG/ML 5 ML SYRINGE ONE (08:54)
[2021-01-24] MEDS ORDERED: Rocuronium Bromide 10 MG/ML (10ML VIAL) ONE (08:54)
[2021-01-24] MEDS ORDERED: Ondansetron PF 4 MG/2 ML Vial ONE (08:54)
[2021-01-24] MEDS ORDERED: Ketorolac Tromethamine 30 MG/ML VIAL ONE (08:54)
[2021-01-24] MEDS ORDERED: Non-Formulary Item 1 EACH (Citalopram Hydrobromide [Citalopram Hbr] 40 MG Tablet) PO SCH (09:00)
[2021-01-24] MEDS ORDERED: Calcitonin,Salmon,Synthetic 200 Units 3.7 ML PUMP L NARE SCH (09:00)
[2021-01-24] MEDS ORDERED: Non-Formulary Item 1 EACH (Lisinopril [Lisinopril] 40 MG Tablet) PO SCH (09:00)
[2021-01-24] MEDS ORDERED: Calcitonin,Salmon,Synthetic 200 Units 3.7 ML PUMP R NARE SCH (09:00)
[2021-01-24] MEDS ORDERED: FENOFIBRATE PO SCH (09:00)
[2021-01-24] MEDS ORDERED: Pioglitazone HCl 15 MG TAB PO SCH (09:00)
[2021-01-24] MEDS ORDERED: Fenofibrate Nanocrystallized 145 MG TAB PO SCH (09:00)
[2021-01-24] MEDS ORDERED: Allopurinol 300 MG TAB PO SCH (09:00)
[2021-01-24] MEDS ORDERED: Lisinopril 20 MG TAB PO SCH (09:00)
[2021-01-24] MEDS ORDERED: Non-Formulary Item 1 EACH (Buspirone Hcl [Buspirone Hcl] 15 MG Tablet) PO SCH (09:00)
[2021-01-24] MEDS ORDERED: Aspirin Chewable 81 MG TAB PO SCH (09:00)
[2021-01-24] MEDS ORDERED: Rifampin 300 MG CAP PO SCH (10:00)
[2021-01-24] MEDS ORDERED: Promethazine HCl 25 MG/ML VIAL IVPB PRN (10:44)
[2021-01-24] MEDS ORDERED: Ondansetron HCl/PF 4 MG/2 ML Vial IVP PRN (10:44)
[2021-01-24] MEDS ORDERED: traMADol HCl 50 MG TAB PO PRN (11:15)
[2021-01-24] MEDS ORDERED: Ropivacaine HCl/PF 250 ML in Premix Bag 1 BAG NERVE BLCK SCH (11:15)
[2021-01-24] MEDS: Enoxaparin Sodium 40 MG/0.4 ML SYRINGE SC SCH (12:05)
[2021-01-24] MEDS: Gabapentin 300 MG CAP PO SCH ×3 (12:06→23:07)
[2021-01-24] MEDS: Senokot S 8.6-50 MG TAB PO SCH ×2 (12:07→23:08)
[2021-01-24] MEDS: metFORMIN 500 MG TAB PO SCH ×2 (12:07→16:17)
[2021-01-24] MEDS: busPIRone HCl 5 MG TAB PO SCH ×2 (12:07→23:07)
[2021-01-24] MEDS: Aspirin 81 mg Enteric Coated Tablet PO SCH ×2 (12:08→23:06)
[2021-01-24] MEDS: Allopurinol 300 MG TAB PO SCH (13:45)
[2021-01-24] MEDS: Citalopram 20 MG TAB PO SCH (13:46)
[2021-01-24] MEDS: Ferrous Gluconate 324 MG TAB PO SCH ×2 (13:47→23:07)
[2021-01-24] MEDS: Pioglitazone HCl 15 MG TAB PO SCH (13:47)
[2021-01-24] MEDS: Leflunomide 10 mg Tablet PO SCH (13:48)
[2021-01-24] MEDS: Sodium Chloride 0.9% 1,000 ML IV SCH ×2 (13:48→16:18)
[2021-01-24] MEDS: Multivitamin W/ Minerals 1 TAB PO SCH (13:49)
[2021-01-24] MEDS: Calcitonin,Salmon,Synthetic 200 Units 3.7 ML PUMP R NARE SCH (15:18)
[2021-01-24] MEDS: CEFAZOLIN 2 GM in Premix Bag 1 BAG IVPB SCH (15:19)
[2021-01-24] MEDS: HYDROcodone/Acetaminophen 10/325 mg Tablet PO PRN ×2 (16:18→23:04)
[2021-01-24] MEDS ORDERED: Vancomycin HCl 1.5 GM in Sodium Chloride 0.9% 250 ML 300 ML IVPB SCH (20:00)
[2021-01-24] MEDS ORDERED: Non-Formulary Item 1 EACH (Trazodone Hcl [Trazodone Hcl] 100 MG Tablet) PO SCH (21:00)
[2021-01-24] MEDS: traZODone HCl 50 MG TAB PO SCH (23:08)
[2021-01-24] MEDS: Rifampin 300 MG CAP PO SCH (23:08)
[2021-01-25] MEDS ORDERED: CEFAZOLIN 2 GM, Admixture Fee 1 EACH in Sodium Chloride 0.9% 100 ML IVPB SCH (01:30)
[2021-01-25] MEDS: CEFAZOLIN 2 GM in Premix Bag 1 BAG IVPB SCH (01:57)
[2021-01-25] MEDS: Sodium Chloride 0.9% 1,000 ML IV SCH ×2 (05:57→15:05)
[2021-01-25] MEDS: HYDROcodone/Acetaminophen 10/325 mg Tablet PO PRN ×4 (05:58→21:56)
[2021-01-25 06:21] LABS: #Basophils 0.1 thou/uL (0.0-0.2); #Eosinphils 0.2 thou/uL (0.0-0.7); #Lymphocytes 1.5 thou/uL (1.20-3.40); #Neutrophils 8.6 thou/uL (1.40-6.50); %Basophils 0.5 % (0.0-1.0); %Eosinophils 1.4 % (0.0-10.0); %Lymphocytes 12.8 % (21.0-51.0); %Monocytes 8.9 % (0.0-10.0); %Neutrophils 76.4 % (42.0-75.0); Hemoglobin 9.9 g/dL (12.0-16.0); Mean Corpuscular HGB CONC 32.1 g/dL (32.0-36.0); Mean Corpuscular Hemoglobin 27.1 pg (27.0-31.0); Mean Corpuscular Volume 84.4 fL (78.0-98.0); Mean Platelet Volume 7.2 fL (7.4-10.4); Platelet Count 410 thou/uL (130-400); Red Blood Cell (RBC) Count 3.65 mill/uL (4.20-5.40); White Blood Cell (WBC) Count 11.3 thou/uL (4.8-10.8)
[2021-01-25] MEDS ORDERED: Calcitonin,Salmon,Synthetic 200 Units 3.7 ML PUMP R NARE SCH (09:00)
[2021-01-25] MEDS ORDERED: Citalopram 20 MG TAB PO SCH (09:00)
[2021-01-25] MEDS: Multivitamin W/ Minerals 1 TAB PO SCH (09:03)
[2021-01-25] MEDS: Aspirin Chewable 81 MG TAB PO SCH (09:03)
[2021-01-25] MEDS: Leflunomide 10 mg Tablet PO SCH (09:04)
[2021-01-25] MEDS: Citalopram 20 MG TAB PO SCH (09:04)
[2021-01-25] MEDS: Lisinopril 20 MG TAB PO SCH (09:04)
[2021-01-25] MEDS: Allopurinol 300 MG TAB PO SCH (09:04)
[2021-01-25] MEDS: busPIRone HCl 5 MG TAB PO SCH ×2 (09:05→21:55)
[2021-01-25] MEDS: Gabapentin 300 MG CAP PO SCH ×2 (09:05→21:57)
[2021-01-25] MEDS: Rifampin 300 MG CAP PO SCH ×2 (09:05→21:56)
[2021-01-25] MEDS: Fenofibrate Nanocrystallized 145 MG TAB PO SCH (09:06)
[2021-01-25] MEDS: metFORMIN 500 MG TAB PO SCH ×2 (09:06→17:35)
[2021-01-25] MEDS: Pioglitazone HCl 15 MG TAB PO SCH (09:06)
[2021-01-25] MEDS: Calcitonin,Salmon,Synthetic 200 Units 3.7 ML PUMP L NARE SCH (09:06)
[2021-01-25] MEDS: Ferrous Gluconate 324 MG TAB PO SCH ×2 (09:06→21:57)
[2021-01-25] MEDS: Senokot S 8.6-50 MG TAB PO SCH ×2 (09:07→21:58)
[2021-01-25] MEDS: Enoxaparin Sodium 40 MG/0.4 ML SYRINGE SC SCH (09:07)
[2021-01-25] MEDS: Vancomycin HCl 1.75 GM in Sodium Chloride 0.9% 500 ML IVPB SCH ×2 (10:31→22:59)
[2021-01-25] MEDS: CEFAZOLIN 1 GM in Sodium Chloride 0.9% 100 ML IVPB SCH ×2 (14:05→22:59)
[2021-01-25] MEDS ORDERED: Vancomycin 1.5 GRAM/300 ML BAG 1.5 GM in Premix Bag 1 BAG IVPB SCH (21:00)
[2021-01-25] MEDS: traZODone HCl 50 MG TAB PO SCH (21:56)
[2021-01-26] MEDS: Sodium Chloride 0.9% 1,000 ML IV SCH ×4 (01:46→19:38)
[2021-01-26] MEDS: HYDROcodone/Acetaminophen 10/325 mg Tablet PO PRN ×2 (05:41→09:48)
[2021-01-26] MEDS: CEFAZOLIN 1 GM in Sodium Chloride 0.9% 100 ML IVPB SCH ×3 (05:43→21:10)
[2021-01-26 06:15] LABS: Hemoglobin 9.6 g/dL (12.0-16.0); Mean Corpuscular HGB CONC 32.2 g/dL (32.0-36.0); Mean Corpuscular Hemoglobin 27.5 pg (27.0-31.0); Mean Corpuscular Volume 85.4 fL (78.0-98.0); Mean Platelet Volume 7.3 fL (7.4-10.4); Platelet Count 386 thou/uL (130-400); RBC Distribution Width 14.9 % (11.5-14.5); Red Blood Cell (RBC) Count 3.51 mill/uL (4.20-5.40); White Blood Cell (WBC) Count 9.1 thou/uL (4.8-10.8)
[2021-01-26] MEDS: Aspirin Chewable 81 MG TAB PO SCH (07:42)
[2021-01-26] MEDS: Fenofibrate Nanocrystallized 145 MG TAB PO SCH (07:42)
[2021-01-26] MEDS: Pioglitazone HCl 15 MG TAB PO SCH (07:42)
[2021-01-26] MEDS: metFORMIN 500 MG TAB PO SCH ×2 (07:42→17:42)
[2021-01-26] MEDS: Allopurinol 300 MG TAB PO SCH (07:43)
[2021-01-26] MEDS: Leflunomide 10 mg Tablet PO SCH (07:43)
[2021-01-26] MEDS: Citalopram 20 MG TAB PO SCH (07:43)
[2021-01-26] MEDS: busPIRone HCl 5 MG TAB PO SCH ×2 (07:43→20:28)
[2021-01-26] MEDS: Gabapentin 300 MG CAP PO SCH ×2 (07:44→20:31)
[2021-01-26] MEDS: Multivitamin W/ Minerals 1 TAB PO SCH (07:44)
[2021-01-26] MEDS: Lisinopril 20 MG TAB PO SCH (07:44)
[2021-01-26] MEDS: Ferrous Gluconate 324 MG TAB PO SCH ×2 (07:44→20:31)
[2021-01-26] MEDS: Calcitonin,Salmon,Synthetic 200 Units 3.7 ML PUMP R NARE SCH (07:45)
[2021-01-26] MEDS: Enoxaparin Sodium 40 MG/0.4 ML SYRINGE SC SCH (07:45)
[2021-01-26] MEDS: Rifampin 300 MG CAP PO SCH ×2 (07:46→20:31)
[2021-01-26] MEDS: traMADol HCl 50 MG TAB PO PRN ×2 (08:04→20:29)
[2021-01-26] MEDS: Vancomycin HCl 1.75 GM in Sodium Chloride 0.9% 500 ML IVPB SCH ×2 (09:48→22:27)
[2021-01-26] MEDS: Senokot S 8.6-50 MG TAB PO SCH ×2 (09:53→20:31)
[2021-01-26] MEDS: traZODone HCl 50 MG TAB PO SCH (20:31)
[2021-01-26 21:50] LABS: Vancomycin, Trough 18.8 ug/mL
[2021-01-27 04:38] LABS: Hemoglobin 9.1 g/dL (12.0-16.0); Mean Corpuscular HGB CONC 31.8 g/dL (32.0-36.0); Mean Corpuscular Hemoglobin 27.1 pg (27.0-31.0); Mean Corpuscular Volume 85.4 fL (78.0-98.0); Mean Platelet Volume 7.3 fL (7.4-10.4); Platelet Count 391 thou/uL (130-400); Red Blood Cell (RBC) Count 3.34 mill/uL (4.20-5.40); White Blood Cell (WBC) Count 7.4 thou/uL (4.8-10.8)
[2021-01-27] MEDS: CEFAZOLIN 1 GM in Sodium Chloride 0.9% 100 ML IVPB SCH ×3 (05:56→22:05)
[2021-01-27] MEDS: Fenofibrate Nanocrystallized 145 MG TAB PO SCH (09:03)
[2021-01-27] MEDS: Leflunomide 10 mg Tablet PO SCH (09:03)
[2021-01-27] MEDS: Enoxaparin Sodium 40 MG/0.4 ML SYRINGE SC SCH (09:03)
[2021-01-27] MEDS: Multivitamin W/ Minerals 1 TAB PO SCH (09:04)
[2021-01-27] MEDS: Senokot S 8.6-50 MG TAB PO SCH ×2 (09:04→20:26)
[2021-01-27] MEDS: Pioglitazone HCl 15 MG TAB PO SCH (09:04)
[2021-01-27] MEDS: Lisinopril 20 MG TAB PO SCH (09:04)
[2021-01-27] MEDS: Ferrous Gluconate 324 MG TAB PO SCH ×2 (09:05→20:24)
[2021-01-27] MEDS: busPIRone HCl 5 MG TAB PO SCH ×2 (09:05→20:23)
[2021-01-27] MEDS: Aspirin Chewable 81 MG TAB PO SCH (09:06)
[2021-01-27] MEDS: metFORMIN 500 MG TAB PO SCH ×2 (09:06→16:38)
[2021-01-27] MEDS: Citalopram 20 MG TAB PO SCH (09:07)
[2021-01-27] MEDS: Allopurinol 300 MG TAB PO SCH (09:07)
[2021-01-27] MEDS: Rifampin 300 MG CAP PO SCH ×2 (09:07→20:25)
[2021-01-27] MEDS: Calcitonin,Salmon,Synthetic 200 Units 3.7 ML PUMP L NARE SCH (09:08)
[2021-01-27] MEDS: Gabapentin 300 MG CAP PO SCH ×2 (09:08→20:25)
[2021-01-27] MEDS: Vancomycin HCl 1.75 GM in Sodium Chloride 0.9% 500 ML IVPB SCH ×2 (10:40→22:56)
[2021-01-27] MEDS: Ondansetron PF 4 MG/2 ML Vial IVP PRN ×2 (12:06→18:58)
[2021-01-27] MEDS: HYDROcodone/Acetaminophen 10/325 mg Tablet PO PRN (15:03)
[2021-01-27] MEDS: Sodium Chloride 0.9% 1,000 ML IV SCH (15:42)
[2021-01-27] MEDS: traZODone HCl 50 MG TAB PO SCH (20:26)
[2021-01-28] MEDS: Sodium Chloride 0.9% 1,000 ML IV SCH ×3 (03:35→22:49)
[2021-01-28 04:59] LABS: Hemoglobin 9.1 g/dL (12.0-16.0); Mean Corpuscular HGB CONC 31.9 g/dL (32.0-36.0); Mean Corpuscular Hemoglobin 26.9 pg (27.0-31.0); Mean Corpuscular Volume 84.2 fL (78.0-98.0); Mean Platelet Volume 7.1 fL (7.4-10.4); Platelet Count 410 thou/uL (130-400); RBC Distribution Width 15.1 % (11.5-14.5); Red Blood Cell (RBC) Count 3.38 mill/uL (4.20-5.40); White Blood Cell (WBC) Count 7.2 thou/uL (4.8-10.8)
[2021-01-28] MEDS: CEFAZOLIN 1 GM in Sodium Chloride 0.9% 100 ML IVPB SCH ×2 (05:47→15:02)
[2021-01-28] MEDS: Fenofibrate Nanocrystallized 145 MG TAB PO SCH (08:52)
[2021-01-28] MEDS: Lisinopril 20 MG TAB PO SCH (08:52)
[2021-01-28] MEDS: Rifampin 300 MG CAP PO SCH ×2 (08:53→21:54)
[2021-01-28] MEDS: Aspirin Chewable 81 MG TAB PO SCH (08:53)
[2021-01-28] MEDS: Ferrous Gluconate 324 MG TAB PO SCH ×2 (08:54→21:54)
[2021-01-28] MEDS: Multivitamin W/ Minerals 1 TAB PO SCH (08:54)
[2021-01-28] MEDS: busPIRone HCl 5 MG TAB PO SCH ×2 (08:54→21:53)
[2021-01-28] MEDS: Allopurinol 300 MG TAB PO SCH (08:54)
[2021-01-28] MEDS: metFORMIN 500 MG TAB PO SCH ×2 (08:54→16:01)
[2021-01-28] MEDS: Citalopram 20 MG TAB PO SCH (08:54)
[2021-01-28] MEDS: Pioglitazone HCl 15 MG TAB PO SCH (08:54)
[2021-01-28] MEDS: Leflunomide 10 mg Tablet PO SCH (08:55)
[2021-01-28] MEDS: Gabapentin 300 MG CAP PO SCH ×2 (08:55→21:54)
[2021-01-28] MEDS: Calcitonin,Salmon,Synthetic 200 Units 3.7 ML PUMP R NARE SCH (08:56)
[2021-01-28] MEDS: Enoxaparin Sodium 40 MG/0.4 ML SYRINGE SC SCH (08:56)
[2021-01-28] MEDS: Senokot S 8.6-50 MG TAB PO SCH ×2 (08:57→21:55)
[2021-01-28 10:13] LABS: Fungus Stain Final report (.)
[2021-01-28] MEDS: Vancomycin HCl 1.75 GM in Sodium Chloride 0.9% 500 ML IVPB SCH ×2 (12:04→22:39)
[2021-01-28] MEDS: cefTRIAXone\\ROCEPHIN 2 GM in Sodium Chloride 0.9% 100 ML IVPB SCH (15:22)
[2021-01-28] MEDS: HYDROcodone/Acetaminophen 10/325 mg Tablet PO PRN (16:00)
[2021-01-28] MEDS: traZODone HCl 50 MG TAB PO SCH (21:55)
[2021-01-28 22:23] LABS: Vancomycin, Trough 24.6 ug/mL
[2021-01-29 04:08] LABS: Hemoglobin 8.9 g/dL (12.0-16.0); Mean Corpuscular HGB CONC 31.8 g/dL (32.0-36.0); Mean Corpuscular Hemoglobin 26.6 pg (27.0-31.0); Mean Corpuscular Volume 83.6 fL (78.0-98.0); Mean Platelet Volume 7.2 fL (7.4-10.4); Platelet Count 412 thou/uL (130-400); RBC Distribution Width 15.1 % (11.5-14.5); Red Blood Cell (RBC) Count 3.35 mill/uL (4.20-5.40); White Blood Cell (WBC) Count 6.3 thou/uL (4.8-10.8)
[2021-01-29] MEDS: Sodium Chloride 0.9% 1,000 ML IV SCH ×2 (08:58→17:19)
[2021-01-29] MEDS: Calcitonin,Salmon,Synthetic 200 Units 3.7 ML PUMP L NARE SCH (09:11)
[2021-01-29] MEDS: Aspirin Chewable 81 MG TAB PO SCH (09:12)
[2021-01-29] MEDS: HYDROcodone/Acetaminophen 10/325 mg Tablet PO PRN (09:12)
[2021-01-29] MEDS: Leflunomide 10 mg Tablet PO SCH (09:12)
[2021-01-29] MEDS: Fenofibrate Nanocrystallized 145 MG TAB PO SCH (09:12)
[2021-01-29] MEDS: Lisinopril 20 MG TAB PO SCH (09:13)
[2021-01-29] MEDS: metFORMIN 500 MG TAB PO SCH ×2 (09:13→17:30)
[2021-01-29] MEDS: Citalopram 20 MG TAB PO SCH (09:13)
[2021-01-29] MEDS: Multivitamin W/ Minerals 1 TAB PO SCH (09:13)
[2021-01-29] MEDS: Gabapentin 300 MG CAP PO SCH ×2 (09:14→21:00)
[2021-01-29] MEDS: Rifampin 300 MG CAP PO SCH (09:14)
[2021-01-29] MEDS: Ferrous Gluconate 324 MG TAB PO SCH ×2 (09:14→21:00)
[2021-01-29] MEDS: Senokot S 8.6-50 MG TAB PO SCH ×2 (09:14→21:00)
[2021-01-29] MEDS: Allopurinol 300 MG TAB PO SCH (09:14)
[2021-01-29] MEDS: Pioglitazone HCl 15 MG TAB PO SCH (09:14)
[2021-01-29] MEDS: busPIRone HCl 5 MG TAB PO SCH ×2 (09:15→21:01)
[2021-01-29] MEDS: Enoxaparin Sodium 40 MG/0.4 ML SYRINGE SC SCH (09:15)
[2021-01-29] MEDS: Vancomycin HCl 1.75 GM in Sodium Chloride 0.9% 500 ML IVPB SCH ×2 (11:42→21:02)
[2021-01-29] MEDS: cefTRIAXone\\ROCEPHIN 2 GM in Sodium Chloride 0.9% 100 ML IVPB SCH (14:54)
[2021-01-29] MEDS: traZODone HCl 50 MG TAB PO SCH (21:00)
[2021-01-30] MEDS: Sodium Chloride 0.9% 1,000 ML IV SCH ×2 (04:31→13:48)
[2021-01-30] MEDS: busPIRone HCl 5 MG TAB PO SCH (08:42)
[2021-01-30] MEDS: metFORMIN 500 MG TAB PO SCH (08:42)
[2021-01-30] MEDS: Citalopram 20 MG TAB PO SCH (08:42)
[2021-01-30] MEDS: Aspirin Chewable 81 MG TAB PO SCH (08:42)
[2021-01-30] MEDS: Ferrous Gluconate 324 MG TAB PO SCH (08:43)
[2021-01-30] MEDS: Allopurinol 300 MG TAB PO SCH (08:43)
[2021-01-30] MEDS: Multivitamin W/ Minerals 1 TAB PO SCH (08:43)
[2021-01-30] MEDS: Pioglitazone HCl 15 MG TAB PO SCH (08:43)
[2021-01-30] MEDS: Lisinopril 20 MG TAB PO SCH (08:43)
[2021-01-30] MEDS: Gabapentin 300 MG CAP PO SCH (08:44)
[2021-01-30] MEDS: Calcitonin,Salmon,Synthetic 200 Units 3.7 ML PUMP R NARE SCH (08:44)
[2021-01-30] MEDS: Enoxaparin Sodium 40 MG/0.4 ML SYRINGE SC SCH (08:44)
[2021-01-30] MEDS: Senokot S 8.6-50 MG TAB PO SCH (08:45)
[2021-01-30] MEDS: Fenofibrate Nanocrystallized 145 MG TAB PO SCH (09:48)
[2021-01-30] MEDS: Leflunomide 10 mg Tablet PO SCH (09:48)
[2021-01-30 11:11] LABS: Vancomycin, Trough 28.2 ug/mL
[2021-01-30 11:50] VITALS: BP 170/78; TEMP 97.5
[2021-01-30] MEDS: Vancomycin HCl 1.75 GM in Sodium Chloride 0.9% 500 ML IVPB SCH (11:57)
[2021-01-30] MEDS: cefTRIAXone\\ROCEPHIN 2 GM in Sodium Chloride 0.9% 100 ML IVPB SCH (14:15)
[2021-01-30] MEDS ORDERED: Vancomycin 1 GM in Premix Bag 1 BAG IVPB SCH (22:00)
== END 2021-01-30 16:55 | disposition home or self-care (01) | DRG 486 ==
LOC: SURG A 13:11
PROVIDERS: ADMIT Orthopaedic Surgery; ATTEND Orthopaedic Surgery
PROC: 0S9C3ZZ Drainage of Right Knee Joint, Percutaneous Approach (ICD-10-PCS; 2021-01-22)
PROC: 0SUV09Z Supplement Right Knee Joint, Tibial Surface with Liner, Open Approach (ICD-10-PCS; principal; 2021-01-24)
PROC: 0SPC09Z Removal of Liner from Right Knee Joint, Open Approach (ICD-10-PCS; 2021-01-24)
PROC: 02HV33Z Insertion of Infusion Device into Superior Vena Cava, Percutaneous Approach (ICD-10-PCS; 2021-01-24)
PROC: B5181ZA Fluoroscopy of Superior Vena Cava using Low Osmolar Contrast, Guidance (ICD-10-PCS; 2021-01-24)
PROC: B548ZZA Ultrasonography of Superior Vena Cava, Guidance (ICD-10-PCS; 2021-01-24)
DX: T84.53XA Infection and inflammatory reaction due to internal right knee prosthesis, initial encounter (principal); Z68.42 Body mass index [BMI] 45.0-49.9, adult; M00.261 Other streptococcal arthritis, right knee; Y83.1 Surgical operation with implant of artificial internal device as the cause of abnormal reaction of the patient, or of later complication, without mention of misadventure at the time of the procedure; Z20.822 Contact with and (suspected) exposure to COVID-19; E66.9 Obesity, unspecified; M06.9 Rheumatoid arthritis, unspecified; B95.4 Other streptococcus as the cause of diseases classified elsewhere; E11.9 Type 2 diabetes mellitus without complications; Z90.49 Acquired absence of other specified parts of digestive tract; Z90.710 Acquired absence of both cervix and uterus; Z88.1 Allergy status to other antibiotic agents; Z88.2 Allergy status to sulfonamides; Z79.899 Other long term (current) drug therapy; Z79.82 Long term (current) use of aspirin; T84.84XA Pain due to internal orthopedic prosthetic devices, implants and grafts, initial encounter; Y79.2 Prosthetic and other implants, materials and accessory orthopedic devices associated with adverse incidents
CPT/HCPCS: 36415; 36416; 36569; 80053; 80202; 81001; 85025; 85027; 85610; 85730; 87070; 87102; 87205; 87206; C1751; J0171; J0690; J0696; J1644; J1650; J1885; J2250; J2405; J2704; J2795; J3010; J3260; J3370; J3490; J7030; J7050; S0020; U0002

== ENCOUNTER → 2021-02-06 | Day surgery (SDC) | payer MEDICARE | LOC: SPEC 10:29 | PROVIDERS: ATTEND Internal Medicine Infectious Disease | PROC: 02HV33Z Insertion of Infusion Device into Superior Vena Cava, Percutaneous Approach (ICD-10-PCS; principal; 2021-02-06) | DX: Z45.2 Encounter for adjustment and management of vascular access device (principal); Z79.2 Long term (current) use of antibiotics; Z88.1 Allergy status to other antibiotic agents; Z88.2 Allergy status to sulfonamides; Z91.011 Allergy to milk products; Z91.013 Allergy to seafood | CPT/HCPCS: 36569; C1751 ==

== ENCOUNTER 2021-02-11 12:57 | Inpatient (IN) | payer MEDICARE ==
[~2021-02-11 12:57] MED LIST changes: -Heparin 1,000 UNITS/ML VIAL ONE; +Iopamidol-370 76% 500 ML 1 ML ONE
[2021-02-11 14:10] LABS: ALT (SGPT) 10 U/L (8-55); AST (SGOT) 15 U/L (5-34); Albumin 3.3 g/dL (3.5-5.0); Alkaline Phosphatase 66 U/L (40-110); Anion Gap 16 mmol/L (10-20); BUN (Urea Nitrogen) 10 mg/dL (9.8-20.1); Bilirubin, Total 0.4 mg/dL (0.2-1.2); Calc. Creatinine Clearance 0 mL/min (70-130); Calcium 8.7 mg/dL (7.8-10.44); Carbon Dioxide 22 mmol/L (22-29); Chloride 109 mmol/L (98-107); Glucose 107 mg/dL (70-105); Potassium 4.2 mmol/L (3.5-5.1); Protein, Total 6.3 g/dL (6.0-8.3); Sodium 143 mmol/L (136-145)
[2021-02-11] MEDS ORDERED: Morphine 4 MG/ML VIAL ONE (14:20)
[2021-02-11 14:31] LABS: #Basophils 0.1 thou/uL (0.0-0.2); #Eosinphils 0.6 thou/uL (0.0-0.7); #Lymphocytes 1.4 thou/uL (1.20-3.40); #Monocytes 0.7 thou/uL (0.11-0.59); #Neutrophils 5.8 thou/uL (1.40-6.50); %Basophils 0.8 % (0.0-1.0); %Eosinophils 6.7 % (0.0-10.0); %Lymphocytes 16.9 % (21.0-51.0); %Monocytes 7.7 % (0.0-10.0); Hemoglobin 9.6 g/dL (12.0-16.0); Mean Corpuscular HGB CONC 31.7 g/dL (32.0-36.0); Mean Corpuscular Volume 85.1 fL (78.0-98.0); Mean Platelet Volume 8.3 fL (7.4-10.4); Platelet Count 243 thou/uL (130-400); RBC Distribution Width 16.4 % (11.5-14.5); Red Blood Cell (RBC) Count 3.57 mill/uL (4.20-5.40); White Blood Cell (WBC) Count 8.5 thou/uL (4.8-10.8)
[2021-02-11] MEDS ORDERED: Labetalol HCl 100 MG/20 ML VIAL ONE (15:03)
[2021-02-11] MEDS ORDERED: Azithromycin 500 MG VIAL ONE (16:27)
[2021-02-11] MEDS ORDERED: Lisinopril 10 MG TAB ONE (17:12)
[2021-02-11] MEDS ORDERED: Communication Order-Pharmacy FS PRN (17:33)
[2021-02-11] MEDS ORDERED: Dextrose 5% in Water 1,000 ML IV PRN (17:42)
[2021-02-11] MEDS ORDERED: Dextrose 50% Abboject 50 ML SYRINGE SLOW IVP PRN (17:42)
[2021-02-11] MEDS ORDERED: HumaLOG 300 UNITS/3 ML VIAL SC PRN ×2 (17:42)
[2021-02-11 18:20] LABS: Troponin I 0.013 ng/mL (< 0.028)
[2021-02-11 18:30] LABS: SARS-CoV-2 NAA Rapid Test Not Detected (NotDetected)
[2021-02-11] MEDS ORDERED: Morphine 4 MG/ML VIAL SLOW IVP PRN (19:15)
[2021-02-11 19:20] LABS: Reticulocyte Count 2.3 % (0.5-1.5)
[2021-02-11 19:31] LABS: Iron 17 ug/dL (50-170); Iron Binding Capacity, Total 239 mcg/dL (265-497)
[2021-02-11 20:02] LABS: Troponin I 0.022 ng/mL (< 0.028)
[2021-02-11] MEDS ORDERED: Vancomycin 1 GM in Premix Bag 1 BAG IVPB SCH (21:00)
[2021-02-11] MEDS: traZODone HCl 50 MG TAB PO SCH (21:11)
[2021-02-11] MEDS: Gabapentin 300 MG CAP PO SCH (21:12)
[2021-02-11] MEDS: busPIRone HCl 5 MG TAB PO SCH (21:16)
[2021-02-11] MEDS: cefTRIAXone\\ROCEPHIN 2 GM in Sodium Chloride 0.9% 100 ML IVPB SCH (21:17)
[2021-02-11] MEDS: Labetalol HCl 100 MG/20 ML VIAL SLOW IVP PRN (21:17)
[2021-02-11] MEDS ORDERED: Enoxaparin Sodium 40 MG/0.4 ML SYRINGE SC SCH (21:30)
[2021-02-11] MEDS ORDERED: Enoxaparin Sodium 100 MG/ML SYRINGE SC SCH (21:30)
[2021-02-11] MEDS ORDERED: VANCOMYCIN 2 GRAM/400 ML BAG 2 GM in Premix Bag 1 BAG IVPB SCH (22:00)
[2021-02-11] MEDS: Enoxaparin Sodium 40 MG/0.4 ML SYRINGE SC SCH ×2 (22:45→23:09)
[2021-02-11] MEDS: Enoxaparin Sodium 100 MG/ML SYRINGE SC SCH ×2 (22:45→23:09)
[2021-02-12] MEDS: hydrALAZINE 20 MG/ML VIAL SLOW IVP PRN ×2 (01:13→20:30)
[2021-02-12 05:10] LABS: #Basophils 0.1 thou/uL (0.0-0.2); #Eosinphils 0.7 thou/uL (0.0-0.7); #Lymphocytes 1.3 thou/uL (1.20-3.40); #Monocytes 0.6 thou/uL (0.11-0.59); #Neutrophils 5.6 thou/uL (1.40-6.50); %Basophils 0.6 % (0.0-1.0); %Eosinophils 8.3 % (0.0-10.0); %Lymphocytes 15.9 % (21.0-51.0); %Monocytes 7.8 % (0.0-10.0); %Neutrophils 67.4 % (42.0-75.0); Hemoglobin 9.2 g/dL (12.0-16.0); Mean Corpuscular HGB CONC 31.3 g/dL (32.0-36.0); Mean Corpuscular Hemoglobin 26.8 pg (27.0-31.0); Mean Corpuscular Volume 85.7 fL (78.0-98.0); Mean Platelet Volume 8.5 fL (7.4-10.4); Platelet Count 239 thou/uL (130-400); RBC Distribution Width 16.2 % (11.5-14.5); Red Blood Cell (RBC) Count 3.43 mill/uL (4.20-5.40); White Blood Cell (WBC) Count 8.2 thou/uL (4.8-10.8)
[2021-02-12 05:23] LABS: ALT (SGPT) 8 U/L (8-55); AST (SGOT) 12 U/L (5-34); Albumin 3.1 g/dL (3.5-5.0); Alkaline Phosphatase 57 U/L (40-110); Anion Gap 13 mmol/L (10-20); BUN (Urea Nitrogen) 9 mg/dL (9.8-20.1); Bilirubin, Total 0.3 mg/dL (0.2-1.2); Calc. Creatinine Clearance 180 mL/min (70-130); Carbon Dioxide 23 mmol/L (22-29); Chloride 109 mmol/L (98-107); Globulin 3.2 g/dL (2.4-3.5); Glucose 115 mg/dL (70-105); Potassium 3.6 mmol/L (3.5-5.1); Protein, Total 6.3 g/dL (6.0-8.3); Sodium 141 mmol/L (136-145)
[2021-02-12] MEDS: Citalopram 20 MG TAB PO SCH (08:26)
[2021-02-12] MEDS: metFORMIN 500 MG TAB PO SCH ×2 (08:26→17:44)
[2021-02-12] MEDS: Allopurinol 300 MG TAB PO SCH (08:27)
[2021-02-12] MEDS: Fenofibrate Nanocrystallized 145 MG TAB PO SCH (08:27)
[2021-02-12] MEDS: Gabapentin 300 MG CAP PO SCH ×2 (08:27→20:30)
[2021-02-12] MEDS: Meloxicam 15 MG TAB PO SCH (08:28)
[2021-02-12] MEDS: Lisinopril 20 MG TAB PO SCH (08:28)
[2021-02-12] MEDS ORDERED: Furosemide 20 MG TAB PO SCH (09:00)
[2021-02-12] MEDS ORDERED: FLU VACC QS2021-22(6MOS UP)/PF 60 MCG/0.5 ML SYRINGE IM ONE (09:00)
[2021-02-12] MEDS: Aspirin Chewable 81 MG TAB PO SCH (10:37)
[2021-02-12] MEDS: Amlodipine 5 MG TAB PO SCH (10:37)
[2021-02-12] MEDS: busPIRone HCl 5 MG TAB PO SCH ×2 (10:38→20:29)
[2021-02-12] MEDS: Furosemide 40 MG TAB PO SCH (10:38)
[2021-02-12] MEDS: Iron Polysaccharides Complex 150 MG CAP PO SCH (14:28)
[2021-02-12] MEDS: Carvedilol 3.125 MG TAB PO SCH (17:44)
[2021-02-12] MEDS: cefTRIAXone\\ROCEPHIN 2 GM in Sodium Chloride 0.9% 100 ML IVPB SCH (20:29)
[2021-02-12] MEDS: traZODone HCl 50 MG TAB PO SCH (20:30)
[2021-02-12] MEDS: Enoxaparin Sodium 40 MG/0.4 ML SYRINGE SC SCH (20:31)
[2021-02-13] MEDS: hydrALAZINE 20 MG/ML VIAL SLOW IVP PRN ×2 (04:33→17:30)
[2021-02-13] MEDS: traMADol HCl 50 MG TAB PO PRN ×2 (04:39→23:54)
[2021-02-13 05:29] LABS: #Basophils 0.1 thou/uL (0.0-0.2); #Eosinphils 0.6 thou/uL (0.0-0.7); #Lymphocytes 1.3 thou/uL (1.20-3.40); #Monocytes 0.7 thou/uL (0.11-0.59); #Neutrophils 5.8 thou/uL (1.40-6.50); %Lymphocytes 14.9 % (21.0-51.0); %Monocytes 8.4 % (0.0-10.0); %Neutrophils 68.7 % (42.0-75.0); Hemoglobin 9.9 g/dL (12.0-16.0); Mean Corpuscular HGB CONC 31.2 g/dL (32.0-36.0); Mean Corpuscular Hemoglobin 26.5 pg (27.0-31.0); Mean Platelet Volume 8.4 fL (7.4-10.4); Platelet Count 231 thou/uL (130-400); RBC Distribution Width 16.2 % (11.5-14.5); Red Blood Cell (RBC) Count 3.73 mill/uL (4.20-5.40); White Blood Cell (WBC) Count 8.4 thou/uL (4.8-10.8)
[2021-02-13 05:46] LABS: ALT (SGPT) 7 U/L (8-55); AST (SGOT) 12 U/L (5-34); Albumin 3.1 g/dL (3.5-5.0); Alkaline Phosphatase 59 U/L (40-110); Anion Gap 15 mmol/L (10-20); BUN (Urea Nitrogen) 7 mg/dL (9.8-20.1); Bilirubin, Total 0.4 mg/dL (0.2-1.2); Calc. Creatinine Clearance 174 mL/min (70-130); Calcium 9.2 mg/dL (7.8-10.44); Carbon Dioxide 22 mmol/L (22-29); Chloride 107 mmol/L (98-107); Globulin 3.5 g/dL (2.4-3.5); Glucose 131 mg/dL (70-105); Potassium 3.4 mmol/L (3.5-5.1); Protein, Total 6.6 g/dL (6.0-8.3); Sodium 141 mmol/L (136-145)
[2021-02-13] MEDS: Labetalol HCl 100 MG/20 ML VIAL SLOW IVP PRN ×2 (06:04→21:25)
[2021-02-13] MEDS ORDERED: Potassium Chloride 40 MEQ in Premix Bag 1 BAG IVPB SCH (08:00)
[2021-02-13] MEDS: Meloxicam 15 MG TAB PO SCH (08:01)
[2021-02-13] MEDS: metFORMIN 500 MG TAB PO SCH ×2 (08:02→16:41)
[2021-02-13] MEDS: Gabapentin 300 MG CAP PO SCH ×2 (08:02→21:27)
[2021-02-13] MEDS: Amlodipine 5 MG TAB PO SCH (08:02)
[2021-02-13] MEDS: Citalopram 20 MG TAB PO SCH (08:03)
[2021-02-13] MEDS: Allopurinol 300 MG TAB PO SCH (08:03)
[2021-02-13] MEDS: Lisinopril 20 MG TAB PO SCH (08:03)
[2021-02-13] MEDS: busPIRone HCl 5 MG TAB PO SCH ×2 (08:04→21:27)
[2021-02-13] MEDS: Cyanocobalamin (Vitamin B-12) 1,000 MCG TAB PO SCH (08:04)
[2021-02-13] MEDS: Carvedilol 3.125 MG TAB PO SCH (08:04)
[2021-02-13] MEDS: Aspirin Chewable 81 MG TAB PO SCH (08:04)
[2021-02-13] MEDS: Fenofibrate Nanocrystallized 145 MG TAB PO SCH (08:05)
[2021-02-13] MEDS: Furosemide 40 MG TAB PO SCH (08:05)
[2021-02-13] MEDS ORDERED: Carvedilol 3.125 MG TAB PO SCH (08:45)
[2021-02-13] MEDS ORDERED: Enoxaparin Sodium 60 MG/0.6 ML SYRINGE SC SCH (09:00)
[2021-02-13 09:02] LABS: Magnesium 1.4 mg/dL (1.6-2.6)
[2021-02-13] MEDS: Enoxaparin Sodium 60 MG/0.6 ML SYRINGE SC SCH ×2 (10:18→21:28)
[2021-02-13 10:19] LABS: Vancomycin, Trough 30.2 ug/mL
[2021-02-13] MEDS ORDERED: Magnesium 2 GM/50 ML 2 GM in Premix Bag 1 BAG IVPB SCH (11:30)
[2021-02-13] MEDS ORDERED: Furosemide 20 MG/2 ML VIAL SLOW IVP SCH (15:00)
[2021-02-13] MEDS: Carvedilol 6.25 MG TAB PO SCH (16:41)
[2021-02-13] MEDS: cefTRIAXone\\ROCEPHIN 2 GM in Sodium Chloride 0.9% 100 ML IVPB SCH (21:27)
[2021-02-13] MEDS: traZODone HCl 50 MG TAB PO SCH (21:27)
[2021-02-13] MEDS: Vancomycin 1 GM in Premix Bag 1 BAG IVPB SCH (23:03)
[2021-02-14 05:27] LABS: #Basophils 0.1 thou/uL (0.0-0.2); #Eosinphils 0.5 thou/uL (0.0-0.7); #Lymphocytes 1.4 thou/uL (1.20-3.40); #Monocytes 0.6 thou/uL (0.11-0.59); #Neutrophils 5.1 thou/uL (1.40-6.50); %Eosinophils 5.9 % (0.0-10.0); %Lymphocytes 18.7 % (21.0-51.0); %Monocytes 7.6 % (0.0-10.0); %Neutrophils 66.8 % (42.0-75.0); Hemoglobin 8.9 g/dL (12.0-16.0); Mean Corpuscular HGB CONC 30.7 g/dL (32.0-36.0); Mean Corpuscular Hemoglobin 26.1 pg (27.0-31.0); Mean Platelet Volume 8.5 fL (7.4-10.4); Platelet Count 260 thou/uL (130-400); RBC Distribution Width 16.3 % (11.5-14.5); Red Blood Cell (RBC) Count 3.41 mill/uL (4.20-5.40); White Blood Cell (WBC) Count 7.7 thou/uL (4.8-10.8)
[2021-02-14 05:53] LABS: ALT (SGPT) Less than 7 U/L (8-55); AST (SGOT) 9 U/L (5-34); Albumin 2.9 g/dL (3.5-5.0); Alkaline Phosphatase 52 U/L (40-110); Anion Gap 13 mmol/L (10-20); BUN (Urea Nitrogen) 8 mg/dL (9.8-20.1); Bilirubin, Total 0.4 mg/dL (0.2-1.2); Calc. Creatinine Clearance 177 mL/min (70-130); Calcium 8.9 mg/dL (7.8-10.44); Carbon Dioxide 28 mmol/L (22-29); Chloride 104 mmol/L (98-107); Globulin 3.2 g/dL (2.4-3.5); Glucose 101 mg/dL (70-105); Magnesium 1.3 mg/dL (1.6-2.6); Protein, Total 6.1 g/dL (6.0-8.3); Sodium 142 mmol/L (136-145)
[2021-02-14] MEDS ORDERED: Magnesium 2 GM/50 ML 2 GM in Premix Bag 1 BAG IVPB SCH (06:45)
[2021-02-14] MEDS ORDERED: Potassium Chloride 40 MEQ in Premix Bag 1 BAG IVPB SCH (07:30)
[2021-02-14] MEDS ORDERED: Amlodipine 5 MG TAB PO SCH (08:09)
[2021-02-14] MEDS ORDERED: Furosemide 40 MG/4 ML VIAL SLOW IVP SCH (08:15)
[2021-02-14] MEDS: Enoxaparin Sodium 60 MG/0.6 ML SYRINGE SC SCH ×2 (08:26→20:54)
[2021-02-14] MEDS: Aspirin Chewable 81 MG TAB PO SCH (08:27)
[2021-02-14] MEDS: Fenofibrate Nanocrystallized 145 MG TAB PO SCH (08:27)
[2021-02-14] MEDS: Allopurinol 300 MG TAB PO SCH (08:27)
[2021-02-14] MEDS: Meloxicam 15 MG TAB PO SCH (08:28)
[2021-02-14 08:29] VITALS: BMI 53.6
[2021-02-14] MEDS: Furosemide 40 MG TAB PO SCH (08:29)
[2021-02-14] MEDS: Gabapentin 300 MG CAP PO SCH ×2 (08:30→20:56)
[2021-02-14] MEDS: busPIRone HCl 5 MG TAB PO SCH ×2 (08:30→20:55)
[2021-02-14] MEDS: Cyanocobalamin (Vitamin B-12) 1,000 MCG TAB PO SCH (08:30)
[2021-02-14] MEDS: metFORMIN 500 MG TAB PO SCH ×2 (08:30→17:00)
[2021-02-14] MEDS: Lisinopril 20 MG TAB PO SCH (08:31)
[2021-02-14] MEDS: Citalopram 20 MG TAB PO SCH (08:31)
[2021-02-14] MEDS: Carvedilol 6.25 MG TAB PO SCH ×2 (08:31→17:20)
[2021-02-14] MEDS: Amlodipine 10 MG TAB PO SCH (10:05)
[2021-02-14] MEDS: Vancomycin 1 GM in Premix Bag 1 BAG IVPB SCH ×2 (11:53→23:42)
[2021-02-14] MEDS: Iron Polysaccharides Complex 150 MG CAP PO SCH (12:56)
[2021-02-14] MEDS: traZODone HCl 50 MG TAB PO SCH (20:55)
[2021-02-14] MEDS: cefTRIAXone\\ROCEPHIN 2 GM in Sodium Chloride 0.9% 100 ML IVPB SCH (20:55)
[2021-02-14] MEDS: hydrALAZINE 20 MG/ML VIAL SLOW IVP PRN (20:58)
[2021-02-15 05:14] LABS: #Basophils 0.1 thou/uL (0.0-0.2); #Eosinphils 0.6 thou/uL (0.0-0.7); #Lymphocytes 1.5 thou/uL (1.20-3.40); #Monocytes 0.6 thou/uL (0.11-0.59); #Neutrophils 4.4 thou/uL (1.40-6.50); %Eosinophils 8.7 % (0.0-10.0); %Monocytes 8.3 % (0.0-10.0); Hemoglobin 9.7 g/dL (12.0-16.0); Mean Corpuscular HGB CONC 31.1 g/dL (32.0-36.0); Mean Corpuscular Hemoglobin 26.4 pg (27.0-31.0); Mean Corpuscular Volume 84.9 fL (78.0-98.0); Mean Platelet Volume 8.7 fL (7.4-10.4); Platelet Count 270 thou/uL (130-400); RBC Distribution Width 16.5 % (11.5-14.5); Red Blood Cell (RBC) Count 3.67 mill/uL (4.20-5.40); White Blood Cell (WBC) Count 7.3 thou/uL (4.8-10.8)
[2021-02-15 05:41] LABS: ALT (SGPT) Less than 7 U/L (8-55); AST (SGOT) 9 U/L (5-34); Alkaline Phosphatase 55 U/L (40-110); Anion Gap 12 mmol/L (10-20); BUN (Urea Nitrogen) 9 mg/dL (9.8-20.1); Bilirubin, Total 0.3 mg/dL (0.2-1.2); Calc. Creatinine Clearance 153 mL/min (70-130); Carbon Dioxide 29 mmol/L (22-29); Chloride 103 mmol/L (98-107); Globulin 3.3 g/dL (2.4-3.5); Glucose 107 mg/dL (70-105); Magnesium 1.4 mg/dL (1.6-2.6); Potassium 3.4 mmol/L (3.5-5.1); Protein, Total 6.3 g/dL (6.0-8.3); Sodium 141 mmol/L (136-145)
[2021-02-15] MEDS ORDERED: Furosemide 40 MG TAB PO SCH (07:59)
[2021-02-15] MEDS ORDERED: Potassium Chloride 20 MEQ TAB PO SCH (08:00)
[2021-02-15] MEDS: Carvedilol 6.25 MG TAB PO SCH ×2 (08:44→16:27)
[2021-02-15] MEDS: metFORMIN 500 MG TAB PO SCH ×2 (08:45→16:27)
[2021-02-15] MEDS: Amlodipine 10 MG TAB PO SCH (08:45)
[2021-02-15] MEDS: Allopurinol 300 MG TAB PO SCH (08:45)
[2021-02-15] MEDS: busPIRone HCl 5 MG TAB PO SCH ×2 (08:46→20:54)
[2021-02-15] MEDS: Aspirin Chewable 81 MG TAB PO SCH (08:46)
[2021-02-15] MEDS: Fenofibrate Nanocrystallized 145 MG TAB PO SCH (08:47)
[2021-02-15] MEDS: Furosemide 80 MG TAB PO SCH (08:47)
[2021-02-15] MEDS: Citalopram 20 MG TAB PO SCH (08:47)
[2021-02-15] MEDS: Cyanocobalamin (Vitamin B-12) 1,000 MCG TAB PO SCH (08:47)
[2021-02-15] MEDS: Gabapentin 300 MG CAP PO SCH ×2 (08:47→20:54)
[2021-02-15] MEDS: Meloxicam 15 MG TAB PO SCH (08:48)
[2021-02-15] MEDS: Lisinopril 20 MG TAB PO SCH (08:48)
[2021-02-15] MEDS: Enoxaparin Sodium 80 MG/0.8 ML SYRINGE SC SCH ×2 (08:49→20:55)
[2021-02-15 09:08] LABS: Phosphorus 2.8 mg/dL (2.3-4.7)
[2021-02-15 10:33] LABS: Vancomycin, Trough 22.1 ug/mL
[2021-02-15] MEDS: Vancomycin 1 GM in Premix Bag 1 BAG IVPB SCH ×2 (11:20→11:49)
[2021-02-15] MEDS: Vancomycin HCl 750 MG in Sodium Chloride 0.9% 250 ML 250 ML IVPB SCH ×2 (11:48→23:57)
[2021-02-15] MEDS: traZODone HCl 50 MG TAB PO SCH (20:54)
[2021-02-15] MEDS: cefTRIAXone\\ROCEPHIN 2 GM in Sodium Chloride 0.9% 100 ML IVPB SCH (20:55)
[2021-02-16 04:39] LABS: #Basophils 0.1 thou/uL (0.0-0.2); #Eosinphils 0.7 thou/uL (0.0-0.7); #Lymphocytes 1.5 thou/uL (1.20-3.40); #Monocytes 0.6 thou/uL (0.11-0.59); #Neutrophils 4.2 thou/uL (1.40-6.50); %Basophils 0.8 % (0.0-1.0); %Eosinophils 9.7 % (0.0-10.0); %Lymphocytes 21.6 % (21.0-51.0); %Monocytes 8.1 % (0.0-10.0); %Neutrophils 59.7 % (42.0-75.0); Hemoglobin 9.6 g/dL (12.0-16.0); Mean Corpuscular HGB CONC 30.4 g/dL (32.0-36.0); Mean Corpuscular Hemoglobin 26.1 pg (27.0-31.0); Mean Corpuscular Volume 85.9 fL (78.0-98.0); Mean Platelet Volume 8.2 fL (7.4-10.4); Platelet Count 277 thou/uL (130-400); RBC Distribution Width 16.5 % (11.5-14.5); Red Blood Cell (RBC) Count 3.67 mill/uL (4.20-5.40); White Blood Cell (WBC) Count 7.1 thou/uL (4.8-10.8)
[2021-02-16 05:06] LABS: ALT (SGPT) Less than 7 U/L (8-55); AST (SGOT) 10 U/L (5-34); Alkaline Phosphatase 54 U/L (40-110); Anion Gap 13 mmol/L (10-20); BUN (Urea Nitrogen) 9 mg/dL (9.8-20.1); Bilirubin, Total 0.3 mg/dL (0.2-1.2); Calc. Creatinine Clearance 160 mL/min (70-130); Calcium 9.1 mg/dL (7.8-10.44); Carbon Dioxide 29 mmol/L (22-29); Chloride 104 mmol/L (98-107); Globulin 3.2 g/dL (2.4-3.5); Glucose 113 mg/dL (70-105); Potassium 3.2 mmol/L (3.5-5.1); Protein, Total 6.2 g/dL (6.0-8.3); Sodium 143 mmol/L (136-145)
[2021-02-16] MEDS: Gabapentin 300 MG CAP PO SCH ×2 (08:54→21:29)
[2021-02-16] MEDS: busPIRone HCl 5 MG TAB PO SCH ×2 (08:55→21:29)
[2021-02-16] MEDS: metFORMIN 500 MG TAB PO SCH ×2 (08:55→16:11)
[2021-02-16] MEDS: Lisinopril 20 MG TAB PO SCH (08:56)
[2021-02-16] MEDS: Fenofibrate Nanocrystallized 145 MG TAB PO SCH (08:56)
[2021-02-16] MEDS: Citalopram 20 MG TAB PO SCH (08:57)
[2021-02-16] MEDS: Amlodipine 10 MG TAB PO SCH (08:57)
[2021-02-16] MEDS: Allopurinol 300 MG TAB PO SCH (08:57)
[2021-02-16] MEDS: Carvedilol 6.25 MG TAB PO SCH ×2 (08:57→16:12)
[2021-02-16] MEDS: Cyanocobalamin (Vitamin B-12) 1,000 MCG TAB PO SCH (08:57)
[2021-02-16] MEDS: Furosemide 80 MG TAB PO SCH (08:57)
[2021-02-16] MEDS: Meloxicam 15 MG TAB PO SCH (08:58)
[2021-02-16] MEDS: Enoxaparin Sodium 80 MG/0.8 ML SYRINGE SC SCH ×2 (08:58→21:28)
[2021-02-16] MEDS: Aspirin Chewable 81 MG TAB PO SCH (08:58)
[2021-02-16] MEDS: Vancomycin HCl 750 MG in Sodium Chloride 0.9% 250 ML 250 ML IVPB SCH ×2 (12:34→22:31)
[2021-02-16] MEDS: Iron Polysaccharides Complex 150 MG CAP PO SCH (12:35)
[2021-02-16] MEDS ORDERED: Potassium Chloride 20 MEQ TAB PO SCH (15:00)
[2021-02-16] MEDS: Potassium Chloride 20 MEQ TAB PO SCH (16:17)
[2021-02-16] MEDS: traZODone HCl 50 MG TAB PO SCH (21:29)
[2021-02-16] MEDS: cefTRIAXone\\ROCEPHIN 2 GM in Sodium Chloride 0.9% 100 ML IVPB SCH (21:30)
[2021-02-16 22:27] LABS: Vancomycin, Trough 21.7 ug/mL
[2021-02-17 05:02] LABS: #Basophils 0.1 thou/uL (0.0-0.2); #Eosinphils 0.8 thou/uL (0.0-0.7); #Monocytes 0.7 thou/uL (0.11-0.59); #Neutrophils 4.2 thou/uL (1.40-6.50); %Basophils 0.9 % (0.0-1.0); %Eosinophils 10.5 % (0.0-10.0); %Lymphocytes 25.9 % (21.0-51.0); %Monocytes 9.5 % (0.0-10.0); %Neutrophils 53.2 % (42.0-75.0); Hemoglobin 9.7 g/dL (12.0-16.0); Mean Corpuscular HGB CONC 31.4 g/dL (32.0-36.0); Mean Corpuscular Hemoglobin 26.9 pg (27.0-31.0); Mean Corpuscular Volume 85.4 fL (78.0-98.0); Mean Platelet Volume 8.2 fL (7.4-10.4); Platelet Count 309 thou/uL (130-400); RBC Distribution Width 16.4 % (11.5-14.5); Red Blood Cell (RBC) Count 3.61 mill/uL (4.20-5.40); White Blood Cell (WBC) Count 7.8 thou/uL (4.8-10.8)
[2021-02-17 05:26] LABS: ALT (SGPT) 7 U/L (8-55); AST (SGOT) 10 U/L (5-34); Albumin 3.1 g/dL (3.5-5.0); Alkaline Phosphatase 57 U/L (40-110); Anion Gap 14 mmol/L (10-20); BUN (Urea Nitrogen) 11 mg/dL (9.8-20.1); Bilirubin, Total 0.3 mg/dL (0.2-1.2); Calc. Creatinine Clearance 140 mL/min (70-130); Carbon Dioxide 29 mmol/L (22-29); Chloride 102 mmol/L (98-107); Globulin 3.2 g/dL (2.4-3.5); Glucose 135 mg/dL (70-105); Protein, Total 6.3 g/dL (6.0-8.3); Sodium 142 mmol/L (136-145)
[2021-02-17] MEDS ORDERED: Potassium Chloride 40 MEQ in Premix Bag 1 BAG IVPB SCH (06:00)
[2021-02-17] MEDS: Meloxicam 15 MG TAB PO SCH (08:17)
[2021-02-17] MEDS: Potassium Chloride 20 MEQ TAB PO SCH (08:18)
[2021-02-17] MEDS: Cyanocobalamin (Vitamin B-12) 1,000 MCG TAB PO SCH (08:18)
[2021-02-17] MEDS: Allopurinol 300 MG TAB PO SCH (08:18)
[2021-02-17] MEDS: Amlodipine 10 MG TAB PO SCH (08:18)
[2021-02-17] MEDS: metFORMIN 500 MG TAB PO SCH (08:19)
[2021-02-17] MEDS: Citalopram 20 MG TAB PO SCH (08:19)
[2021-02-17] MEDS: busPIRone HCl 5 MG TAB PO SCH (08:19)
[2021-02-17] MEDS: Aspirin Chewable 81 MG TAB PO SCH (08:19)
[2021-02-17] MEDS: Gabapentin 300 MG CAP PO SCH (08:19)
[2021-02-17] MEDS: Carvedilol 6.25 MG TAB PO SCH (08:20)
[2021-02-17] MEDS: Fenofibrate Nanocrystallized 145 MG TAB PO SCH (08:20)
[2021-02-17] MEDS: Enoxaparin Sodium 80 MG/0.8 ML SYRINGE SC SCH (08:20)
[2021-02-17] MEDS: Furosemide 80 MG TAB PO SCH (08:20)
[2021-02-17] MEDS: Lisinopril 20 MG TAB PO SCH (08:21)
[2021-02-17 08:48] LABS: Magnesium 1.4 mg/dL (1.6-2.6)
[2021-02-17 12:07] VITALS: BP 142/74; TEMP 98.4
[2021-02-17] MEDS ORDERED: Vancomycin HCl 1.25 GM in Sodium Chloride 0.9% 250 ML 250 ML IVPB SCH (23:00)
== END 2021-02-17 12:30 | disposition home health service (06) | DRG 291 ==
LOC: ERS 12:57 → 2NO 17:23
PROVIDERS: ADMIT Emergency Medicine; ATTEND Emergency Medicine
PROC: 5A09357 Assistance with Respiratory Ventilation, Less than 24 Consecutive Hours, Continuous Positive Airway Pressure (ICD-10-PCS; principal; 2021-02-11)
DX: I11.0 Hypertensive heart disease with heart failure (principal); J96.01 Acute respiratory failure with hypoxia; I50.33 Acute on chronic diastolic (congestive) heart failure; M00.9 Pyogenic arthritis, unspecified; I16.1 Hypertensive emergency; E66.2 Morbid (severe) obesity with alveolar hypoventilation; Z68.43 Body mass index [BMI] 50.0-59.9, adult; Z20.822 Contact with and (suspected) exposure to COVID-19; U09.9 Post COVID-19 condition, unspecified; E78.5 Hyperlipidemia, unspecified; F41.9 Anxiety disorder, unspecified; F32.A Depression, unspecified; L40.50 Arthropathic psoriasis, unspecified; L40.9 Psoriasis, unspecified; G89.29 Other chronic pain; Z96.651 Presence of right artificial knee joint; E11.65 Type 2 diabetes mellitus with hyperglycemia; M10.9 Gout, unspecified; D50.9 Iron deficiency anemia, unspecified; G43.909 Migraine, unspecified, not intractable, without status migrainosus; Z88.1 Allergy status to other antibiotic agents; Z91.013 Allergy to seafood; Z88.2 Allergy status to sulfonamides; Z88.8 Allergy status to other drugs, medicaments and biological substances; Z91.018 Allergy to other foods; Z79.899 Other long term (current) drug therapy; Z79.84 Long term (current) use of oral hypoglycemic drugs; Z79.82 Long term (current) use of aspirin; Z79.1 Long term (current) use of non-steroidal anti-inflammatories (NSAID); Z99.89 Dependence on other enabling machines and devices; Z98.890 Other specified postprocedural states; Z90.49 Acquired absence of other specified parts of digestive tract; Z90.710 Acquired absence of both cervix and uterus; Z82.49 Family history of ischemic heart disease and other diseases of the circulatory system; Z84.0 Family history of diseases of the skin and subcutaneous tissue; Z83.3 Family history of diabetes mellitus
CPT/HCPCS: 36415; 36416; 71045; 71275; 80053; 80202; 82607; 82728; 82746; 83540; 83550; 83735; 83880; 84100; 84484; 85025; 85046; 85520; 86140; 93005; 93306; 96365; 96375; J0360; J0456; J0696; J1650; J1940; J2270; J3370; J3475; J3480; J3490; J7030; J7050; Q9967; U0002